=== PATIENT | female | born 1955 | race Caucasian/White ===

== ENCOUNTER 2018-03-19 21:11 | Inpatient (IN) | payer OTHER ==
[~2018-03-19] VITALS: Ht 162.6 cm; Wt 53.3 kg
[~2018-03-19 21:11] MED LIST: ENOX40SY4 SQ; FOLI-17 PO; IBUP-1221 PO; LEVE500T53 PO; LORA-445 PO; MAGN400T26 PO; OXYC5TAB3 PO; SODIUM TABLET PO; THIA100T6 PO
[2018-03-19 23:04] LABS: BASOPHILS # (AUTO) 0.03 x10^3/uL (0-0.1); BASOPHILS % (AUTO) 0 % (0-1); EOSINOPHILS # (AUTO) 0.03 x10^3/uL (0-0.4); EOSINOPHILS % (AUTO) 0 % (1-7); LYMPHOCYTES # (AUTO) 2.59 x10^3/uL (1-3.4); LYMPHOCYTES % (AUTO) 29 % (22-44); MD NO; MEAN CORPUSCULAR HEMOGLOBIN 32.2 pg (27.0-34.8); MEAN CORPUSCULAR HGB CONC 34.1 g/dL (32.4-35.8); MEAN CORPUSCULAR VOLUME 94.3 fL (80-100); MONOCYTES % (AUTO) 11 % (2-9); NEUTROPHILS # (AUTO) 5.19 x10^3/uL (1.8-6.8); NEUTROPHILS % (AUTO) 59 % (42-75); PLATELET COUNT 273 x10^3/uL (130-400); RED BLOOD COUNT 5.47 x10^6/uL (3.82-5.3); RED CELL DISTRIBUTION WIDTH 13.5 % (9.6-15.2)
[2018-03-19 23:14] LABS: ALBUMIN 3.2 g/dL (3.4-5.0); ANION GAP 10 mmol/L (5-15); CALCIUM 8.7 mg/dL (8.5-10.1); CHLORIDE 91 mmol/L (98-107); CREATININE 0.43 mg/dL (0.55-1.02)
[2018-03-19] MEDS ORDERED: SODIUM CHLORIDE 0.9% 1,000ML IVBOLUS ONE (23:30)
[2018-03-19] MEDS ORDERED: SODIUM CHLORIDE FLUSH 10ML SYR IVF ONE (23:30)
[2018-03-20] MEDS ORDERED: NICOTINE 14MG/24 HR PATCH.TD24 TD SCH (01:30)
[2018-03-20] MEDS ORDERED: PROMETHAZINE 25 MG/ML, 1ML IM PRN (01:30)
[2018-03-20] MEDS ORDERED: LORazepam 0.5MG TABLET PO PRN (01:30)
[2018-03-20] MEDS: HEPARIN 5,000 UNITS/ML, 1ML SQ SCH ×2 (01:30→08:41)
[2018-03-20] MEDS ORDERED: BISACODYL 10 MG SUPP PR PRN (01:30)
[2018-03-20] MEDS ORDERED: hydrALAzine 20 MG/ML, 1ML IVPush PRN (01:30)
[2018-03-20] MEDS ORDERED: morphine SULFATE 10 MG/ML, 1ML IVPush PRN (01:30)
[2018-03-20] MEDS ORDERED: OXYcodone IR 5MG TABLET PO PRN (01:30)
[2018-03-20] MEDS ORDERED: ONDANSETRON 2MG/ML, 2ML IVPush PRN (01:30)
[2018-03-20] MEDS ORDERED: LORazepam 1MG TABLET PO PRN ×4 (01:30)
[2018-03-20] MEDS ORDERED: LORazepam 2 MG/ML, 1ML IV PRN ×5 (01:30)
[2018-03-20] MEDS ORDERED: ONDANSETRON ODT 4 MG PO PRN (01:30)
[2018-03-20] MEDS ORDERED: DOCUSATE 100 MG CAPSULE PO PRN (01:30)
[2018-03-20] MEDS ORDERED: POLYETHYLENE GLYCOL 17 GM PACKET PO PRN (01:30)
[2018-03-20 01:45] VITALS: BP 141/95
[2018-03-20] MEDS: SODIUM CHLORIDE 0.9% 1,000 ML IV SCH ×2 (02:01→08:43)
[2018-03-20 02:02] LABS: FREE T4 (FREE THYROXINE) 1.22 ng/dL (0.76-1.46); THYROID STIMULATING HORMONE 2.81 mIU/L (0.358-3.740)
[2018-03-20 02:20] LABS: HEMOGLOBIN A1C 5.8 % (4.2-6.3)
[2018-03-20 02:36] VITALS: BP 141/95
[2018-03-20] MEDS: THIAMINE 100MG TABLET PO SCH ×2 (08:41→08:51)
[2018-03-20 08:43] VITALS: BP 133/96
[2018-03-20] MEDS ORDERED: MAGNESIUM OXIDE 400 MG TABLET PO SCH (09:00)
[2018-03-20] MEDS ORDERED: FAMOTIDINE 20 MG/2 ML IVPush SCH (09:00)
[2018-03-20] MEDS ORDERED: FOLIC ACID 1 MG TABLET PO SCH (09:00)
[2018-03-20] MEDS ORDERED: BEER 12 OZ CAN PO SCH (11:30)
[2018-03-20 13:45] VITALS: BP 167/110
== END 2018-03-20 16:12 | disposition left against medical advice (07) | DRG 204 ==
LOC: ED 21:54 → EDIP 23:25 → 3NW 03-20 00:35 → 3NE 03-20 01:09
PROVIDERS: ADMIT Internal Medicine; ATTEND Internal Medicine
DX: R06.03 Acute respiratory distress (principal); E44.0 Moderate protein-calorie malnutrition; E87.1 Hypo-osmolality and hyponatremia; W01.0XXA Fall on same level from slipping, tripping and stumbling without subsequent striking against object, initial encounter; G89.11 Acute pain due to trauma; I10 Essential (primary) hypertension; E86.0 Dehydration; F10.20 Alcohol dependence, uncomplicated; F41.9 Anxiety disorder, unspecified; M19.90 Unspecified osteoarthritis, unspecified site; R62.7 Adult failure to thrive; S63.502A Unspecified sprain of left wrist, initial encounter; S83.92XA Sprain of unspecified site of left knee, initial encounter; Z91.14 Patient's other noncompliance with medication regimen; Z91.81 History of falling; Z96.642 Presence of left artificial hip joint; Z68.20 Body mass index [BMI] 20.0-20.9, adult; Z53.21 Procedure and treatment not carried out due to patient leaving prior to being seen by health care provider; Y93.89 Activity, other specified; Y92.89 Other specified places as the place of occurrence of the external cause; Y99.8 Other external cause status
CPT/HCPCS: 36415; 72190; 80048; 82040; 83036; 83735; 84100; 84439; 84443; 85025; 93005; 96360; J1644; J7030; S0028

== ENCOUNTER 2018-04-10 11:51 | Emergency (ER) | payer SELFPAY ==
[~2018-04-10] VITALS: Ht 160 cm; Wt 50.0 kg
[2018-04-10] MEDS ORDERED: SODIUM CHLORIDE FLUSH 10ML SYR IVF ONE (13:30)
[2018-04-10 13:40] LABS: BASOPHILS # (AUTO) 0.06 x10^3/uL (0-0.1); BASOPHILS % (AUTO) 1 % (0-1); EOSINOPHILS # (AUTO) 0.02 x10^3/uL (0-0.4); EOSINOPHILS % (AUTO) 0 % (1-7); LYMPHOCYTES % (AUTO) 29 % (22-44); MD NO; MEAN CORPUSCULAR HEMOGLOBIN 31.4 pg (27.0-34.8); MEAN CORPUSCULAR HGB CONC 33.3 g/dL (32.4-35.8); MEAN CORPUSCULAR VOLUME 94.2 fL (80-100); MONOCYTES # (AUTO) 0.56 x10^3/uL (0.2-0.8); MONOCYTES % (AUTO) 8 % (2-9); NEUTROPHILS # (AUTO) 4.16 x10^3/uL (1.8-6.8); NEUTROPHILS % (AUTO) 61 % (42-75); PLATELET COUNT 315 x10^3/uL (130-400); RED BLOOD COUNT 5.26 x10^6/uL (3.82-5.3)
[2018-04-10] MEDS ORDERED: SODIUM CHLORIDE 0.9% 1,000 ML IV ONE (13:47)
[2018-04-10 13:48] LABS: ALBUMIN 2.7 g/dL (3.4-5.0); ANION GAP 10 mmol/L (5-15); CALCIUM 7.8 mg/dL (8.5-10.1); CHLORIDE 97 mmol/L (98-107)
[2018-04-10 13:51] LABS: ALANINE AMINOTRANSFERASE 37 U/L (12-78); ALKALINE PHOSPHATASE 208 U/L (45-117); BILIRUBIN,TOTAL 0.8 mg/dL (0.2-1.0); CREATININE 0.47 mg/dL (0.55-1.02); TOTAL PROTEIN 7.1 g/dL (6.4-8.2)
[2018-04-10] MEDS ORDERED: SODIUM CHLORIDE 0.9% 1,000ML IVBOLUS ONE (14:00)
[2018-04-10] MEDS ORDERED: OMNIPAQUE 350 MG/ML, 100ML BOTTLE ONE (14:53)
[2018-04-10 15:59] LABS: MICROSCOPIC AUTO
[2018-04-10 16:01] LABS: CULTURE INDICATED? YES
[2018-04-10 16:27] LABS: CLOSTRIDIUM DIFFICILE ANTIGEN NEGATIVE; CLOSTRIDIUM DIFFICILE TOXIN NEGATIVE (Negative)
[2018-04-10 17:36] VITALS: BP 130/99
== END 2018-04-10 18:40 | disposition home or self-care (01) ==
LOC: ED 12:13
DX: R10.84 Generalized abdominal pain (principal); N39.0 Urinary tract infection, site not specified; F17.200 Nicotine dependence, unspecified, uncomplicated
CPT/HCPCS: 36415; 74177; 80053; 81001; 83605; 83690; 85025; 87077; 87086; 87186; 87324; 89055; 96360; 96361; 99285; J7030; Q9967

== ENCOUNTER 2018-04-12 07:36 | Inpatient (IN) | payer SELFPAY ==
[~2018-04-12] VITALS: Ht 160 cm; Wt 56.3 kg
[2018-04-12] MEDS ORDERED: SODIUM CHLORIDE 0.9% 1,000ML IVBOLUS ONE (08:00)
[2018-04-12] MEDS ORDERED: SODIUM CHLORIDE FLUSH 10ML SYR IVF ONE (08:00)
[2018-04-12 08:07] LABS: INTERNATIONAL NORMALIZED RATIO 1.29 (0.93-1.1); PROTHROMBIN TIME 13.2 Seconds (9.6-11.5)
[2018-04-12 08:13] LABS: ALANINE AMINOTRANSFERASE 37 U/L (12-78); ALBUMIN 2.9 g/dL (3.4-5.0); ANION GAP 15 mmol/L (5-15); CALCIUM 8.5 mg/dL (8.5-10.1); CHLORIDE 86 mmol/L (98-107); CREATININE 0.44 mg/dL (0.55-1.02)
[2018-04-12 08:15] LABS: ALKALINE PHOSPHATASE 219 U/L (45-117); BILIRUBIN,TOTAL 1.1 mg/dL (0.2-1.0); TOTAL PROTEIN 7.4 g/dL (6.4-8.2)
[2018-04-12 08:19] LABS: BASOPHILS # (AUTO) 0.02 x10^3/uL (0-0.1); BASOPHILS % (AUTO) 0 % (0-1); EOSINOPHILS # (AUTO) 0.01 x10^3/uL (0-0.4); EOSINOPHILS % (AUTO) 0 % (1-7); LYMPHOCYTES # (AUTO) 1.12 x10^3/uL (1-3.4); LYMPHOCYTES % (AUTO) 13 % (22-44); MD NO; MEAN CORPUSCULAR HEMOGLOBIN 31.5 pg (27.0-34.8); MEAN CORPUSCULAR HGB CONC 33.9 g/dL (32.4-35.8); MEAN CORPUSCULAR VOLUME 92.7 fL (80-100); MEAN PLATELET VOLUME 8.1 fL (7.4-10.4); MONOCYTES # (AUTO) 0.51 x10^3/uL (0.2-0.8); MONOCYTES % (AUTO) 6 % (2-9); NEUTROPHILS # (AUTO) 7.14 x10^3/uL (1.8-6.8); NEUTROPHILS % (AUTO) 81 % (42-75); PLATELET COUNT 318 x10^3/uL (130-400); RED BLOOD COUNT 5.55 x10^6/uL (3.82-5.3); RED CELL DISTRIBUTION WIDTH 13.4 % (9.6-15.2)
[2018-04-12 09:12] LABS: MICROSCOPIC AUTO
[2018-04-12 09:14] LABS: CULTURE INDICATED? YES
[2018-04-12] MEDS ORDERED: FENTANYL PF 100 MCG/2ML IVPush PRN (09:30)
[2018-04-12 09:46] LABS: TROPONIN I 0.032 ng/mL (0.000-0.045)
[2018-04-12] MEDS ORDERED: FENTANYL PF 100 MCG/2ML ONE (09:54)
[2018-04-12] MEDS ORDERED: LORazepam 0.5MG TABLET PO PRN (12:00)
[2018-04-12] MEDS ORDERED: LORazepam 1MG TABLET PO PRN (12:00)
[2018-04-12] MEDS ORDERED: ONDANSETRON ODT 4 MG PO PRN (12:00)
[2018-04-12] MEDS ORDERED: hydrALAzine 20 MG/ML, 1ML IVPush PRN (12:00)
[2018-04-12] MEDS ORDERED: LORazepam 2 MG/ML, 1ML IV PRN ×4 (12:00)
[2018-04-12] MEDS ORDERED: POLYETHYLENE GLYCOL 17 GM PACKET PO PRN (12:00)
[2018-04-12] MEDS ORDERED: MORPHINE SULFATE 4 MG/ML, 1ML IVPush PRN (12:00)
[2018-04-12] MEDS ORDERED: LABETALOL 5MG/ML, 20ML IVPush PRN (12:00)
[2018-04-12] MEDS ORDERED: DOCUSATE 100 MG CAPSULE PO PRN (12:00)
[2018-04-12] MEDS ORDERED: PROMETHAZINE 25 MG/ML, 1ML IM PRN (12:00)
[2018-04-12] MEDS ORDERED: ONDANSETRON 2MG/ML, 2ML IVPush PRN (12:00)
[2018-04-12] MEDS ORDERED: OXYcodone IR 5MG TABLET PO PRN (12:00)
[2018-04-12 12:43] LABS: FREE T4 (FREE THYROXINE) 1.12 ng/dL (0.76-1.46); THYROID STIMULATING HORMONE 2.41 mIU/L (0.358-3.740)
[2018-04-12 12:52] VITALS: BP 138/70
[2018-04-12 12:58] LABS: HEMOGLOBIN A1C 5.9 % (4.2-6.3)
[2018-04-12] MEDS ORDERED: ASPIRIN 81 MG TABLET EC PO SCH (13:00)
[2018-04-12] MEDS ORDERED: ENOXAPARIN 40 MG/0.4 ML SQ SCH (13:00)
[2018-04-12] MEDS ORDERED: LOSARTAN 25MG TABLET PO SCH (13:00)
[2018-04-12] MEDS: LORazepam 1MG TABLET PO PRN (15:04)
[2018-04-12] MEDS: POTASSIUM CHLORIDE 20 MEQ, MAGNESIUM SULFATE 2 GM, THIAMINE 100 MG, MVI ADULT 10 ML, FO... IV SCH ×2 (15:05→23:16)
[2018-04-12] MEDS: LOSARTAN 25MG TABLET PO SCH (15:30)
[2018-04-12] MEDS: CEFTRIAXONE PMX 1GM/50ML 50 ML IV SCH (17:19)
[2018-04-12 18:35] VITALS: BP 139/74
[2018-04-13] MEDS: LOSARTAN 25MG TABLET PO SCH ×2 (00:06→09:56)
[2018-04-13 00:53] VITALS: BP 136/63
[2018-04-13 05:32] LABS: CHLORIDE 99 mmol/L (98-107)
[2018-04-13 05:34] LABS: BASOPHILS # (AUTO) 0.02 x10^3/uL (0-0.1); BASOPHILS % (AUTO) 0 % (0-1); EOSINOPHILS # (AUTO) 0.03 x10^3/uL (0-0.4); EOSINOPHILS % (AUTO) 1 % (1-7); LYMPHOCYTES # (AUTO) 1.71 x10^3/uL (1-3.4); LYMPHOCYTES % (AUTO) 26 % (22-44); MD NO; MEAN CORPUSCULAR HEMOGLOBIN 31.8 pg (27.0-34.8); MEAN CORPUSCULAR HGB CONC 33.8 g/dL (32.4-35.8); MEAN PLATELET VOLUME 7.7 fL (7.4-10.4); MONOCYTES # (AUTO) 0.72 x10^3/uL (0.2-0.8); MONOCYTES % (AUTO) 11 % (2-9); NEUTROPHILS # (AUTO) 4.06 x10^3/uL (1.8-6.8); NEUTROPHILS % (AUTO) 62 % (42-75); PLATELET COUNT 273 x10^3/uL (130-400); RED BLOOD COUNT 4.57 x10^6/uL (3.82-5.3); RED CELL DISTRIBUTION WIDTH 13.9 % (9.6-15.2)
[2018-04-13 05:45] LABS: ALANINE AMINOTRANSFERASE 23 U/L (12-78); ALBUMIN 2.1 g/dL (3.4-5.0); ALKALINE PHOSPHATASE 152 U/L (45-117); ANION GAP 7 mmol/L (5-15); CALCIUM 7.7 mg/dL (8.5-10.1); CHOL/HDL RATIO 1.7; CHOLESTEROL, TOTAL 99 mg/dL (140-239); HDL CHOL % 61 % (28-40); HDL CHOLESTEROL (DIRECT) 60 mg/dL (40-60); LDL CHOLESTEROL,CALCULATED 24 mg/dL (54-169); LDL/HDL RATIO 0.4 (0.5-3.0); TOTAL PROTEIN 5.7 g/dL (6.4-8.2); TRIGLYCERIDES 77 mg/dL (50-200); VLDL CHOLESTEROL 15 mg/dL (0-25)
[2018-04-13 07:44] VITALS: BP 120/51
[2018-04-13] MEDS ORDERED: ACETAMINOPHEN 325 MG TABLET PO PRN (09:00)
[2018-04-13] MEDS ORDERED: POTASSIUM CHLORIDE 20 MEQ TAB.ER.PRT PO ONE (09:00)
[2018-04-13] MEDS ORDERED: FENTANYL PF 100 MCG/2ML IVPush PRN (09:00)
[2018-04-13] MEDS ORDERED: SODIUM CHLORIDE 0.9% 1,000 ML IV SCH (09:00)
[2018-04-13] MEDS: LACTOBACILLUS CHEW TABLET PO SCH ×2 (09:55→17:48)
[2018-04-13] MEDS: LORazepam 1MG TABLET PO PRN (09:56)
[2018-04-13] MEDS ORDERED: OXYcodone IR 5MG TABLET PO PRN (12:00)
[2018-04-13] MEDS ORDERED: ACID1TAB7 PO (13:23)
[2018-04-13] MEDS ORDERED: CIPR500T8 PO (13:23)
[2018-04-13 13:36] VITALS: BP 169/78
[2018-04-13] MEDS: CEFTRIAXONE PMX 1GM/50ML 50 ML IV SCH ×2 (17:00→17:48)
[2018-04-13 18:38] VITALS: BP 176/97
== END 2018-04-13 19:40 | disposition home or self-care (01) | DRG 689 ==
LOC: ED 08:46 → EDIP 10:59 → 4NOR 12:05
PROVIDERS: ADMIT Hospitalist; ATTEND Hospitalist
DX: N39.0 Urinary tract infection, site not specified (principal); E43 Unspecified severe protein-calorie malnutrition; E87.1 Hypo-osmolality and hyponatremia; F10.239 Alcohol dependence with withdrawal, unspecified; E86.0 Dehydration; E87.6 Hypokalemia; F17.210 Nicotine dependence, cigarettes, uncomplicated; K70.9 Alcoholic liver disease, unspecified; F41.9 Anxiety disorder, unspecified; G89.29 Other chronic pain; I10 Essential (primary) hypertension; Z96.642 Presence of left artificial hip joint; Z88.0 Allergy status to penicillin; Z91.14 Patient's other noncompliance with medication regimen; Z68.22 Body mass index [BMI] 22.0-22.9, adult
CPT/HCPCS: 36415; 74021; 80053; 80061; 81001; 83036; 83605; 83690; 83735; 84439; 84443; 84484; 85025; 85610; 87077; 87086; 87186; 93005; 96374; J0696; J1650; J3010; J3411; J3475; J3480; J7042; J7030

== ENCOUNTER 2018-06-18 14:09 | Inpatient (IN) | payer SELFPAY ==
[~2018-06-18] VITALS: Ht 157.5 cm; Wt 49.6 kg
[~2018-06-18 14:09] MED LIST changes: +ACID1TAB7 PO; +CIPR500T8 PO; -THIA100T6 PO; +THIA100T67 PO
[2018-06-18 14:44] LABS: BASOPHILS # (AUTO) 0.07 x10^3/uL (0-0.1); BASOPHILS % (AUTO) 1 % (0-1); EOSINOPHILS # (AUTO) 0.04 x10^3/uL (0-0.4); EOSINOPHILS % (AUTO) 0 % (1-7); LYMPHOCYTES # (AUTO) 3.31 x10^3/uL (1-3.4); LYMPHOCYTES % (AUTO) 29 % (22-44); MD NO; MEAN CORPUSCULAR HEMOGLOBIN 31.1 pg (27.0-34.8); MEAN CORPUSCULAR HGB CONC 33.7 g/dL (32.4-35.8); MEAN CORPUSCULAR VOLUME 92.2 fL (80-100); MEAN PLATELET VOLUME 7.7 fL (7.4-10.4); MONOCYTES # (AUTO) 1.28 x10^3/uL (0.2-0.8); MONOCYTES % (AUTO) 11 % (2-9); NEUTROPHILS # (AUTO) 6.68 x10^3/uL (1.8-6.8); NEUTROPHILS % (AUTO) 59 % (42-75); PLATELET COUNT 408 x10^3/uL (130-400); RED BLOOD COUNT 4.59 x10^6/uL (3.82-5.3); RED CELL DISTRIBUTION WIDTH 17.2 % (9.6-15.2)
[2018-06-18 14:56] LABS: INTERNATIONAL NORMALIZED RATIO 1.09 (0.93-1.1); PROTHROMBIN TIME 11.2 Seconds (9.6-11.5)
[2018-06-18 14:57] LABS: ALANINE AMINOTRANSFERASE 17 U/L (12-78); ALBUMIN 3.5 g/dL (3.4-5.0); ANION GAP 13 mmol/L (5-15); CALCIUM 8.5 mg/dL (8.5-10.1); CHLORIDE 87 mmol/L (98-107); CREATININE 0.37 mg/dL (0.55-1.02)
[2018-06-18] MEDS ORDERED: LORazepam 1MG TABLET PO ONE (15:00)
[2018-06-18] MEDS ORDERED: LORazepam 0.5MG TABLET ONE (15:02)
[2018-06-18 15:05] LABS: CULTURE INDICATED? YES; MICROSCOPIC INDICATED
[2018-06-18] MEDS ORDERED: HYDR-3307 PO (15:06)
[2018-06-18] MEDS ORDERED: GABA-827 PO (15:06)
[2018-06-18] MEDS ORDERED: FURO-93 PO (15:06)
[2018-06-18] MEDS ORDERED: METO200T47 PO (15:06)
[2018-06-18] MEDS ORDERED: TRAZ-137 PO (15:06)
[2018-06-18] MEDS ORDERED: FAMO10TA31 PO (15:06)
[2018-06-18] MEDS ORDERED: LISI-167 PO (15:06)
[2018-06-18 15:07] LABS: ALKALINE PHOSPHATASE 162 U/L (45-117); BILIRUBIN,TOTAL 1.1 mg/dL (0.2-1.0); TOTAL PROTEIN 7.6 g/dL (6.4-8.2)
[2018-06-18 16:53] VITALS: BP 166/93
[2018-06-18] MEDS ORDERED: SODIUM CHLORIDE 0.9% 1,000 ML IV ONE (17:00)
[2018-06-18] MEDS ORDERED: SODIUM CHLORIDE 0.9% 1,000 ML IV SCH (17:09)
[2018-06-18] MEDS: ENOXAPARIN 40 MG/0.4 ML SQ SCH (17:28)
[2018-06-18] MEDS ORDERED: ONDANSETRON 2MG/ML, 2ML IVPush PRN (17:30)
[2018-06-18] MEDS ORDERED: LORazepam 1MG TABLET PO PRN ×4 (17:30)
[2018-06-18] MEDS ORDERED: hydrALAzine 20 MG/ML, 1ML IVPush PRN (17:30)
[2018-06-18] MEDS ORDERED: ACETAMINOPHEN 325 MG TABLET PO PRN (17:30)
[2018-06-18] MEDS ORDERED: BUTALB/APAP/CAFFEINE 50MG/325MG/40MG PO PRN (17:30)
[2018-06-18] MEDS ORDERED: GUAIFENESIN/COD200MG-20MG/10ML LIQUID PO PRN (17:30)
[2018-06-18] MEDS: NICOTINE 7 MG/24 HR PATCH.TD24 TD SCH (17:30)
[2018-06-18] MEDS ORDERED: MAGNESIUM SULFATE PMX 2GM/50ML 50 ML IV ONE (18:00)
[2018-06-18 18:24] VITALS: BP 106/61
[2018-06-18] MEDS ORDERED: METO-95 PO (18:31)
[2018-06-18] MEDS ORDERED: Famotidine PO (18:31)
[2018-06-18] MEDS ORDERED: GABA-826 PO (18:31)
[2018-06-18] MEDS ORDERED: Lisinopril (18:31)
[2018-06-18] MEDS ORDERED: TRAZ5POW PO (18:31)
[2018-06-18] MEDS ORDERED: HYDR-3245 PO (18:33)
[2018-06-18] MEDS: HYDROcodone/APAP 10/325 MG TABLET PO SCH (18:51)
[2018-06-18] MEDS: TRAZODONE 50MG TABLET PO SCH (20:07)
[2018-06-18] MEDS: GABAPENTIN 100 MG CAPSULE PO SCH (20:07)
[2018-06-18] MEDS ORDERED: TRAZODONE 100MG TABLET PO SCH (21:00)
[2018-06-18] MEDS ORDERED: SODIUM CHLORIDE 1 GM TABLET PO SCH (21:00)
[2018-06-18] MEDS ORDERED: GABAPENTIN 400 MG CAPSULE PO SCH (21:00)
[2018-06-18 21:15] LABS: OSMOLALITY,URINE 140 mOsm/kg (500-850)
[2018-06-18 23:14] LABS: ANION GAP 6 mmol/L (5-15); CALCIUM 8.1 mg/dL (8.5-10.1); CHLORIDE 97 mmol/L (98-107); CREATININE 0.47 mg/dL (0.55-1.02)
[2018-06-19] MEDS: HYDROcodone/APAP 10/325 MG TABLET PO SCH ×4 (00:33→19:19)
[2018-06-19 01:19] VITALS: BP 139/67
[2018-06-19] MEDS ORDERED: SODIUM CHLORIDE 0.9% 1,000 ML IV ONE (02:30)
[2018-06-19] MEDS ORDERED: HYDROcodone/APAP 10/325 MG TABLET PO SCH ×2 (03:00→09:00)
[2018-06-19 04:52] LABS: BASOPHILS # (AUTO) 0.01 x10^3/uL (0-0.1); BASOPHILS % (AUTO) 0 % (0-1); EOSINOPHILS # (AUTO) 0.05 x10^3/uL (0-0.4); EOSINOPHILS % (AUTO) 1 % (1-7); LYMPHOCYTES % (AUTO) 41 % (22-44); MD NO; MEAN CORPUSCULAR HEMOGLOBIN 31.7 pg (27.0-34.8); MEAN CORPUSCULAR HGB CONC 33.8 g/dL (32.4-35.8); MEAN CORPUSCULAR VOLUME 93.7 fL (80-100); MONOCYTES # (AUTO) 0.94 x10^3/uL (0.2-0.8); MONOCYTES % (AUTO) 15 % (2-9); NEUTROPHILS # (AUTO) 2.81 x10^3/uL (1.8-6.8); NEUTROPHILS % (AUTO) 44 % (42-75); PLATELET COUNT 369 x10^3/uL (130-400); RED BLOOD COUNT 3.79 x10^6/uL (3.82-5.3); RED CELL DISTRIBUTION WIDTH 17.7 % (9.6-15.2)
[2018-06-19 04:59] LABS: ANION GAP 7 mmol/L (5-15); CALCIUM 7.7 mg/dL (8.5-10.1); CHLORIDE 102 mmol/L (98-107); CREATININE 0.27 mg/dL (0.55-1.02)
[2018-06-19] MEDS ORDERED: METOPROLOL SUCCINATE 100 MG TAB.ER.24H PO SCH ×2 (06:00→09:00)
[2018-06-19 06:56] VITALS: BP 106/64
[2018-06-19] MEDS ORDERED: LISINOPRIL 10 MG TABLET PO SCH (09:00)
[2018-06-19] MEDS ORDERED: FAMOTIDINE 20 MG TABLET PO SCH (09:00)
[2018-06-19] MEDS: MULTIVITAMINS/MINERALS TABLET PO SCH (10:24)
[2018-06-19] MEDS: FAMOTIDINE 20 MG TABLET PO SCH (10:24)
[2018-06-19] MEDS: GABAPENTIN 100 MG CAPSULE PO SCH ×3 (10:25→20:29)
[2018-06-19] MEDS: LISINOPRIL 5 MG TABLET PO SCH (10:25)
[2018-06-19] MEDS: SODIUM CHLORIDE 1 GM TABLET PO SCH ×2 (10:27→20:29)
[2018-06-19 12:03] VITALS: BP 193/81
[2018-06-19 12:34] VITALS: BP 145/79
[2018-06-19] MEDS: DOCUSATE 100 MG CAPSULE PO PRN (14:14)
[2018-06-19] MEDS: LORazepam 0.5MG TABLET PO PRN (14:54)
[2018-06-19] MEDS: ENOXAPARIN 40 MG/0.4 ML SQ SCH (16:35)
[2018-06-19] MEDS: NICOTINE 7 MG/24 HR PATCH.TD24 TD SCH (16:40)
[2018-06-19] MEDS ORDERED: SODIUM CHLORIDE 0.9% 1,000 ML IV SCH (17:09)
[2018-06-19 19:18] VITALS: BP 138/72
[2018-06-19] MEDS: TRAZODONE 50MG TABLET PO SCH (20:29)
[2018-06-19] MEDS: METOPROLOL TARTRATE 50 MG TABLET PO SCH (20:30)
[2018-06-20] VITALS (7 sets, daily range): BP systolic 118–158; BP diastolic 66–81
[2018-06-20] MEDS: HYDROcodone/APAP 10/325 MG TABLET PO SCH ×4 (01:17→20:24)
[2018-06-20] MEDS: LORazepam 0.5MG TABLET PO PRN ×2 (05:05→17:00)
[2018-06-20] MEDS: DOCUSATE 100 MG CAPSULE PO PRN (09:32)
[2018-06-20] MEDS: LISINOPRIL 5 MG TABLET PO SCH (09:32)
[2018-06-20] MEDS: SODIUM CHLORIDE 1 GM TABLET PO SCH ×2 (09:32→20:24)
[2018-06-20] MEDS: MULTIVITAMINS/MINERALS TABLET PO SCH (09:32)
[2018-06-20] MEDS: FAMOTIDINE 20 MG TABLET PO SCH (09:33)
[2018-06-20] MEDS: GABAPENTIN 100 MG CAPSULE PO SCH ×3 (09:33→21:00)
[2018-06-20] MEDS: METOPROLOL TARTRATE 50 MG TABLET PO SCH ×2 (09:33→20:24)
[2018-06-20 10:09] LABS: ANION GAP 10 mmol/L (5-15); CALCIUM 8.2 mg/dL (8.5-10.1); CHLORIDE 103 mmol/L (98-107); CREATININE 0.49 mg/dL (0.55-1.02)
[2018-06-20] MEDS ORDERED: SODI1TAB PO (11:16)
[2018-06-20] MEDS ORDERED: GABA-826 PO (11:16)
[2018-06-20] MEDS ORDERED: LISI5TAB7 PO (11:16)
[2018-06-20] MEDS ORDERED: SULF-169 PO (11:16)
[2018-06-20] MEDS ORDERED: FAMO20TA7 PO (11:16)
[2018-06-20] MEDS: SULFAMETH./TRIMETHOPRIM DS 800MG/160MG TABLET PO SCH ×2 (11:24→20:24)
[2018-06-20 13:27] LABS: TROPONIN I < 0.015 ng/mL (0.000-0.045)
[2018-06-20] MEDS: ENOXAPARIN 40 MG/0.4 ML SQ SCH (17:00)
[2018-06-20] MEDS: NICOTINE 7 MG/24 HR PATCH.TD24 TD SCH (17:01)
[2018-06-20 19:25] LABS: TROPONIN I < 0.015 ng/mL (0.000-0.045)
[2018-06-20] MEDS: TRAZODONE 50MG TABLET PO SCH (20:24)
[2018-06-21 00:57] LABS: TROPONIN I < 0.015 ng/mL (0.000-0.045)
[2018-06-21 01:01] VITALS: BP 111/63
[2018-06-21] MEDS: HYDROcodone/APAP 10/325 MG TABLET PO SCH ×2 (01:40→07:40)
[2018-06-21 05:51] LABS: MEAN CORPUSCULAR HEMOGLOBIN 31.2 pg (27.0-34.8); MEAN CORPUSCULAR HGB CONC 33.1 g/dL (32.4-35.8); MEAN CORPUSCULAR VOLUME 94.4 fL (80-100); MEAN PLATELET VOLUME 7.9 fL (7.4-10.4); PLATELET COUNT 331 x10^3/uL (130-400); RED BLOOD COUNT 3.82 x10^6/uL (3.82-5.3); RED CELL DISTRIBUTION WIDTH 18.3 % (9.6-15.2)
[2018-06-21 06:00] LABS: ANION GAP 6 mmol/L (5-15); CALCIUM 8.2 mg/dL (8.5-10.1); CHLORIDE 103 mmol/L (98-107)
[2018-06-21 06:09] LABS: BASOPHILS # (AUTO) 0.08 x10^3/uL (0-0.1); BASOPHILS % (AUTO) 1 % (0-1); EOSINOPHILS # (AUTO) 0.23 x10^3/uL (0-0.4); EOSINOPHILS % (AUTO) 3 % (1-7); LYMPHOCYTES # (AUTO) 3.81 x10^3/uL (1-3.4); LYMPHOCYTES % (AUTO) 45 % (22-44); MD SCAN; MONOCYTES # (AUTO) 1.21 x10^3/uL (0.2-0.8); MONOCYTES % (AUTO) 14 % (2-9); NEUTROPHILS # (AUTO) 3.22 x10^3/uL (1.8-6.8); NEUTROPHILS % (AUTO) 38 % (42-75)
[2018-06-21 06:40] VITALS: BP 169/83
[2018-06-21] MEDS: SULFAMETH./TRIMETHOPRIM DS 800MG/160MG TABLET PO SCH (07:39)
[2018-06-21] MEDS: METOPROLOL TARTRATE 50 MG TABLET PO SCH (07:39)
[2018-06-21] MEDS: MULTIVITAMINS/MINERALS TABLET PO SCH (07:39)
[2018-06-21] MEDS: LISINOPRIL 5 MG TABLET PO SCH (07:40)
[2018-06-21] MEDS: SODIUM CHLORIDE 1 GM TABLET PO SCH (07:40)
[2018-06-21] MEDS: FAMOTIDINE 20 MG TABLET PO SCH (07:40)
[2018-06-21] MEDS: GABAPENTIN 100 MG CAPSULE PO SCH (07:40)
[2018-06-21] MEDS ORDERED: ONDANSETRON ODT 4 MG ONE (10:01)
[2018-06-21] MEDS ORDERED: SODI1TAB PO (10:42)
[2018-06-21] MEDS: LORazepam 0.5MG TABLET PO PRN (11:22)
== END 2018-06-21 12:08 | disposition home or self-care (01) | DRG 641 ==
LOC: ED 14:29 → EDIP 16:21 → 3NW 16:48 → 4EST 06-20 15:43 → DCLOUNGE 06-21 12:04
PROVIDERS: ADMIT Internal Medicine; ATTEND Internal Medicine
DX: E87.1 Hypo-osmolality and hyponatremia (principal); N39.0 Urinary tract infection, site not specified; E44.0 Moderate protein-calorie malnutrition; Z96.641 Presence of right artificial hip joint; I10 Essential (primary) hypertension; F17.200 Nicotine dependence, unspecified, uncomplicated; F41.9 Anxiety disorder, unspecified; E86.0 Dehydration; G89.29 Other chronic pain; F10.20 Alcohol dependence, uncomplicated; B96.1 Klebsiella pneumoniae [K. pneumoniae] as the cause of diseases classified elsewhere; B96.20 Unspecified Escherichia coli [E. coli] as the cause of diseases classified elsewhere; Z87.440 Personal history of urinary (tract) infections; Z91.14 Patient's other noncompliance with medication regimen; Z88.0 Allergy status to penicillin; Z68.20 Body mass index [BMI] 20.0-20.9, adult
CPT/HCPCS: 36415; 71045; 80048; 80053; 81001; 83690; 83735; 83935; 84100; 84443; 84484; 85025; 85610; 85730; 87077; 87086; 87186; 93005; 99285; J1650; J2405; J3475; J7030

== ENCOUNTER 2018-07-03 09:14 | Emergency (ER) | payer SELFPAY ==
[~2018-07-03] VITALS: Ht 162.6 cm; Wt 48.0 kg
[~2018-07-03 09:14] MED LIST changes: +FAMO10TA31 PO; +FAMO20TA7 PO; +FURO-93 PO; +Famotidine PO; +GABA-826 PO; +GABA-827 PO; +HYDR-3245 PO; +HYDR-3307 PO; +LISI-167 PO; +LISI5TAB7 PO; +Lisinopril; +METO-95 PO; +METO200T47 PO; +SODI1TAB PO; +SULF-169 PO; +TRAZ-137 PO; +TRAZ5POW PO
[2018-07-03] MEDS ORDERED: SODIUM CHLORIDE 0.9% 1,000 ML IV ONE (09:33)
[2018-07-03 09:57] LABS: MICROSCOPIC INDICATED
[2018-07-03 09:58] LABS: CULTURE INDICATED? YES
[2018-07-03] MEDS ORDERED: SODIUM CHLORIDE FLUSH 10ML SYR IVF ONE (10:00)
[2018-07-03] MEDS ORDERED: MORPHINE SULFATE 4 MG/ML, 1ML IVPush PRN (10:00)
[2018-07-03] MEDS ORDERED: LORazepam 2 MG/ML, 1ML IVPush STA (10:26)
[2018-07-03] MEDS ORDERED: LORazepam 2 MG/ML, 1ML ONE (10:38)
[2018-07-03 11:06] VITALS: BP 108/86
[2018-07-03] MEDS ORDERED: OMNIPAQUE 350 MG/ML, 100ML BOTTLE ONE (11:49)
[2018-07-03 12:05] LABS: BASOPHILS # (AUTO) 0.05 x10^3/uL (0-0.1); BASOPHILS % (AUTO) 1 % (0-1); EOSINOPHILS # (AUTO) 0.04 x10^3/uL (0-0.4); EOSINOPHILS % (AUTO) 0 % (1-7); LYMPHOCYTES # (AUTO) 2.99 x10^3/uL (1-3.4); LYMPHOCYTES % (AUTO) 31 % (22-44); MD NO; MEAN CORPUSCULAR HEMOGLOBIN 31.8 pg (27.0-34.8); MEAN CORPUSCULAR HGB CONC 33.9 g/dL (32.4-35.8); MEAN PLATELET VOLUME 7.5 fL (7.4-10.4); MONOCYTES # (AUTO) 0.87 x10^3/uL (0.2-0.8); MONOCYTES % (AUTO) 9 % (2-9); NEUTROPHILS # (AUTO) 5.69 x10^3/uL (1.8-6.8); NEUTROPHILS % (AUTO) 59 % (42-75); PLATELET COUNT 428 x10^3/uL (130-400); RED CELL DISTRIBUTION WIDTH 17.4 % (9.6-15.2)
[2018-07-03 12:16] LABS: ALANINE AMINOTRANSFERASE 12 U/L (12-78); ALBUMIN 2.8 g/dL (3.4-5.0); ANION GAP 12 mmol/L (5-15); CALCIUM 8.1 mg/dL (8.5-10.1); CHLORIDE 102 mmol/L (98-107); CREATININE 0.37 mg/dL (0.55-1.02)
[2018-07-03 12:19] LABS: ALKALINE PHOSPHATASE 109 U/L (45-117); BILIRUBIN,TOTAL 0.6 mg/dL (0.2-1.0); TOTAL PROTEIN 6.4 g/dL (6.4-8.2)
== END 2018-07-03 14:37 | disposition home or self-care (01) ==
LOC: ED 09:29
DX: K80.20 Calculus of gallbladder without cholecystitis without obstruction (principal); I10 Essential (primary) hypertension; F10.20 Alcohol dependence, uncomplicated; F17.200 Nicotine dependence, unspecified, uncomplicated; R19.7 Diarrhea, unspecified; R63.0 Anorexia; R30.0 Dysuria
CPT/HCPCS: 36415; 74177; 80053; 81001; 83690; 85025; 87077; 87086; 93005; 96374; 99285; J2060; Q9967; 87186

== ENCOUNTER 2018-07-07 09:40 | Inpatient (IN) | payer SELFPAY ==
[~2018-07-07] VITALS: Ht 162.6 cm; Wt 45.5 kg
[2018-07-07] MEDS ORDERED: MORPHINE SULFATE 4 MG/ML, 1ML IVPush PRN (10:00)
[2018-07-07] MEDS ORDERED: DIAZEPAM 5 MG TABLET ONE (10:05)
[2018-07-07] MEDS ORDERED: MORPHINE SULFATE 4 MG/ML, 1ML ONE (10:05)
[2018-07-07] MEDS ORDERED: DIAZEPAM 5 MG TABLET PO ONE (11:00)
[2018-07-07] MEDS ORDERED: SODIUM CHLORIDE FLUSH 10ML SYR IVF ONE (11:00)
[2018-07-07] MEDS ORDERED: SODIUM CHLORIDE 0.9% 1,000 ML IV ONE (11:00)
[2018-07-07 11:53] LABS: ALBUMIN 3.6 g/dL (3.4-5.0); ANION GAP 10 mmol/L (5-15); CHLORIDE 100 mmol/L (98-107); CREATININE 0.41 mg/dL (0.55-1.02)
[2018-07-07 12:28] LABS: BASOPHILS # (AUTO) 0.03 x10^3/uL (0-0.1); BASOPHILS % (AUTO) 1 % (0-1); EOSINOPHILS # (AUTO) 0.02 x10^3/uL (0-0.4); EOSINOPHILS % (AUTO) 0 % (1-7); LYMPHOCYTES # (AUTO) 2.35 x10^3/uL (1-3.4); LYMPHOCYTES % (AUTO) 47 % (22-44); MD SCAN; MEAN CORPUSCULAR HEMOGLOBIN 31.1 pg (27.0-34.8); MEAN CORPUSCULAR VOLUME 94.2 fL (80-100); MEAN PLATELET VOLUME 8.2 fL (7.4-10.4); MONOCYTES # (AUTO) 0.39 x10^3/uL (0.2-0.8); MONOCYTES % (AUTO) 8 % (2-9); NEUTROPHILS # (AUTO) 2.22 x10^3/uL (1.8-6.8); NEUTROPHILS % (AUTO) 44 % (42-75); PLATELET COUNT 425 x10^3/uL (130-400); RED BLOOD COUNT 4.98 x10^6/uL (3.82-5.3); RED CELL DISTRIBUTION WIDTH 17.4 % (9.6-15.2)
[2018-07-07] MEDS ORDERED: TRAZ-137 PO (12:54)
[2018-07-07] MEDS ORDERED: GABA100C PO (12:54)
[2018-07-07] MEDS ORDERED: NITR100C PO (12:54)
[2018-07-07] MEDS ORDERED: POTA10TA5 PO (12:54)
[2018-07-07] MEDS ORDERED: METO25TA35 PO (12:54)
[2018-07-07 13:48] VITALS: BP 196/99
[2018-07-07 13:52] VITALS: BP 196/99
[2018-07-07] MEDS ORDERED: POLYETHYLENE GLYCOL 17 GM PACKET PO PRN (14:00)
[2018-07-07] MEDS ORDERED: ONDANSETRON ODT 4 MG PO PRN (14:00)
[2018-07-07] MEDS ORDERED: BISACODYL 10 MG SUPP PR PRN (14:00)
[2018-07-07] MEDS ORDERED: LABETALOL 5MG/ML, 20ML IVPush PRN (14:00)
[2018-07-07] MEDS ORDERED: ONDANSETRON 2MG/ML, 2ML IVPush PRN (14:00)
[2018-07-07] MEDS ORDERED: hydrALAzine 20 MG/ML, 1ML IVPush PRN (14:00)
[2018-07-07] MEDS ORDERED: ACETAMINOPHEN 325 MG TABLET PO PRN (14:00)
[2018-07-07] MEDS ORDERED: morphine SULFATE 10 MG/ML, 1ML IVPush PRN (14:00)
[2018-07-07] MEDS: NICOTINE 7 MG/24 HR PATCH.TD24 TD SCH (14:00)
[2018-07-07] MEDS ORDERED: PROMETHAZINE 25 MG/ML, 1ML IM PRN (14:00)
[2018-07-07] MEDS ORDERED: IBUPROFEN 600 MG TABLET PO PRN (14:00)
[2018-07-07] MEDS: GABAPENTIN 300 MG CAPSULE PO SCH ×2 (14:24→21:00)
[2018-07-07] MEDS: METHOCARBAMOL 500 MG TABLET PO PRN ×2 (14:27→23:35)
[2018-07-07] MEDS: ENOXAPARIN 40 MG/0.4 ML SQ SCH (14:27)
[2018-07-07 14:32] LABS: CULTURE INDICATED? NO; MICROSCOPIC NOT IND
[2018-07-07 14:58] LABS: HEMOGLOBIN A1C 5.6 % (4.2-6.3)
[2018-07-07] MEDS: OXYcodone/APAP 5/325MG TABLET PO PRN ×2 (15:42→20:18)
[2018-07-07 16:28] LABS: FREE T4 (FREE THYROXINE) 1.45 ng/dL (0.76-1.46); THYROID STIMULATING HORMONE 3.35 mIU/L (0.358-3.740)
[2018-07-07 19:15] VITALS: BP 79/42
[2018-07-07 20:16] VITALS: BP 152/67
[2018-07-07] MEDS: METOPROLOL TARTRATE 25 MG TABLET PO SCH (21:32)
[2018-07-07] MEDS: TRAZODONE 100MG TABLET PO SCH (21:32)
[2018-07-07] MEDS: NITROFURANTOIN (MACROBID) 100 MG CAPSULE PO SCH (21:32)
[2018-07-07 21:33] VITALS: BP 123/62
[2018-07-08] MEDS: OXYcodone/APAP 5/325MG TABLET PO PRN ×7 (04:28→23:12)
[2018-07-08 04:31] VITALS: BP 168/72
[2018-07-08 05:47] LABS: CHLORIDE 103 mmol/L (98-107)
[2018-07-08 05:55] LABS: ALANINE AMINOTRANSFERASE 10 U/L (12-78); ALBUMIN 2.9 g/dL (3.4-5.0); ALKALINE PHOSPHATASE 109 U/L (45-117); ANION GAP 9 mmol/L (5-15); BILIRUBIN,TOTAL 0.4 mg/dL (0.2-1.0); CALCIUM 8.9 mg/dL (8.5-10.1); CHOL/HDL RATIO 2.5; CHOLESTEROL, TOTAL 142 mg/dL (140-239); CREATININE 0.36 mg/dL (0.55-1.02); HDL CHOL % 39 % (28-40); HDL CHOLESTEROL (DIRECT) 56 mg/dL (40-60); LDL CHOLESTEROL,CALCULATED 65 mg/dL (54-169); LDL/HDL RATIO 1.2 (0.5-3.0); TOTAL PROTEIN 6.4 g/dL (6.4-8.2); TRIGLYCERIDES 103 mg/dL (50-200); VLDL CHOLESTEROL 21 mg/dL (0-25)
[2018-07-08 05:56] LABS: BASOPHILS # (AUTO) 0.04 x10^3/uL (0-0.1); BASOPHILS % (AUTO) 1 % (0-1); EOSINOPHILS # (AUTO) 0.15 x10^3/uL (0-0.4); EOSINOPHILS % (AUTO) 2 % (1-7); LYMPHOCYTES # (AUTO) 3.43 x10^3/uL (1-3.4); LYMPHOCYTES % (AUTO) 48 % (22-44); MD NO; MEAN CORPUSCULAR HEMOGLOBIN 31.3 pg (27.0-34.8); MEAN CORPUSCULAR HGB CONC 33.1 g/dL (32.4-35.8); MEAN CORPUSCULAR VOLUME 94.5 fL (80-100); MEAN PLATELET VOLUME 8.2 fL (7.4-10.4); MONOCYTES # (AUTO) 1.03 x10^3/uL (0.2-0.8); MONOCYTES % (AUTO) 15 % (2-9); NEUTROPHILS # (AUTO) 2.44 x10^3/uL (1.8-6.8); NEUTROPHILS % (AUTO) 35 % (42-75); PLATELET COUNT 483 x10^3/uL (130-400); RED BLOOD COUNT 4.16 x10^6/uL (3.82-5.3); RED CELL DISTRIBUTION WIDTH 17.2 % (9.6-15.2)
[2018-07-08 07:09] VITALS: BP 138/77
[2018-07-08] MEDS: METHOCARBAMOL 500 MG TABLET PO PRN ×2 (07:36→21:07)
[2018-07-08] MEDS: METOPROLOL TARTRATE 25 MG TABLET PO SCH ×2 (08:30→21:07)
[2018-07-08] MEDS: FAMOTIDINE 20 MG TABLET PO SCH (08:30)
[2018-07-08] MEDS: NITROFURANTOIN (MACROBID) 100 MG CAPSULE PO SCH ×2 (08:30→21:07)
[2018-07-08] MEDS: SENNA/DOCUSATE TABLET PO SCH (08:31)
[2018-07-08] MEDS: GABAPENTIN 300 MG CAPSULE PO SCH ×3 (09:00→21:00)
[2018-07-08] MEDS: POTASSIUM CHLORIDE 40 MEQ in SODIUM CHLORIDE 0.9% 500 ML IV ONE ×2 (10:00→10:16)
[2018-07-08] MEDS ORDERED: ERGOCALCIFEROL 50,000 UNIT CAPSULE PO SCH (10:00)
[2018-07-08] MEDS ORDERED: LORazepam 2 MG/ML, 1ML IVPush ONE (12:00)
[2018-07-08] MEDS ORDERED: POTASSIUM CHLORIDE 10% 40 MEQ/30 ML UDC PO ONE ×2 (13:00→21:00)
[2018-07-08 13:53] VITALS: BP 124/89
[2018-07-08] MEDS: NICOTINE 7 MG/24 HR PATCH.TD24 TD SCH (14:00)
[2018-07-08] MEDS ORDERED: GADOBUTROL 7.5 MMOL/7.5 ML PFS ONE (15:22)
[2018-07-08] MEDS: ENOXAPARIN 40 MG/0.4 ML SQ SCH (15:45)
[2018-07-08 20:44] VITALS: BP 169/71
[2018-07-08] MEDS: TRAZODONE 100MG TABLET PO SCH (21:08)
[2018-07-09 02:45] VITALS: BP 156/89
[2018-07-09] MEDS: OXYcodone/APAP 5/325MG TABLET PO PRN ×5 (05:38→21:58)
[2018-07-09] MEDS: METHOCARBAMOL 500 MG TABLET PO PRN ×3 (05:50→21:58)
[2018-07-09 07:42] VITALS: BP 137/88
[2018-07-09] MEDS: GABAPENTIN 300 MG CAPSULE PO SCH ×3 (08:56→20:14)
[2018-07-09] MEDS: NITROFURANTOIN (MACROBID) 100 MG CAPSULE PO SCH ×2 (08:57→20:14)
[2018-07-09] MEDS: SENNA/DOCUSATE TABLET PO SCH (08:57)
[2018-07-09] MEDS: FAMOTIDINE 20 MG TABLET PO SCH (08:57)
[2018-07-09] MEDS: METOPROLOL TARTRATE 25 MG TABLET PO SCH ×2 (09:04→20:14)
[2018-07-09 12:50] VITALS: BP 127/88
[2018-07-09] MEDS: NICOTINE 7 MG/24 HR PATCH.TD24 TD SCH (14:00)
[2018-07-09] MEDS: ENOXAPARIN 40 MG/0.4 ML SQ SCH (14:10)
[2018-07-09 18:38] VITALS: BP 149/90
[2018-07-09] MEDS: TRAZODONE 100MG TABLET PO SCH (21:58)
[2018-07-10] MEDS: OXYcodone/APAP 5/325MG TABLET PO PRN ×6 (01:58→23:27)
[2018-07-10 02:11] VITALS: BP 115/74
[2018-07-10 04:24] LABS: BASOPHILS # (AUTO) 0.04 x10^3/uL (0-0.1); BASOPHILS % (AUTO) 1 % (0-1); EOSINOPHILS # (AUTO) 0.23 x10^3/uL (0-0.4); EOSINOPHILS % (AUTO) 3 % (1-7); LYMPHOCYTES # (AUTO) 3.55 x10^3/uL (1-3.4); LYMPHOCYTES % (AUTO) 51 % (22-44); MD NO; MEAN CORPUSCULAR HEMOGLOBIN 31.4 pg (27.0-34.8); MEAN CORPUSCULAR HGB CONC 33.1 g/dL (32.4-35.8); MEAN CORPUSCULAR VOLUME 94.8 fL (80-100); MONOCYTES # (AUTO) 0.84 x10^3/uL (0.2-0.8); MONOCYTES % (AUTO) 12 % (2-9); NEUTROPHILS % (AUTO) 33 % (42-75); PLATELET COUNT 452 x10^3/uL (130-400); RED BLOOD COUNT 4.09 x10^6/uL (3.82-5.3); RED CELL DISTRIBUTION WIDTH 17.7 % (9.6-15.2)
[2018-07-10 04:34] LABS: ANION GAP 6 mmol/L (5-15); CALCIUM 8.8 mg/dL (8.5-10.1); CHLORIDE 104 mmol/L (98-107)
[2018-07-10 04:37] LABS: CREATININE 0.42 mg/dL (0.55-1.02)
[2018-07-10] MEDS: METHOCARBAMOL 500 MG TABLET PO PRN ×3 (05:50→21:59)
[2018-07-10 07:45] VITALS: BP 168/84
[2018-07-10] MEDS: FAMOTIDINE 20 MG TABLET PO SCH (08:40)
[2018-07-10] MEDS: SENNA/DOCUSATE TABLET PO SCH (08:40)
[2018-07-10] MEDS: GABAPENTIN 300 MG CAPSULE PO SCH ×3 (08:40→21:44)
[2018-07-10] MEDS: METOPROLOL TARTRATE 25 MG TABLET PO SCH ×2 (08:41→21:41)
[2018-07-10] MEDS: LOSARTAN 25MG TABLET PO SCH (08:41)
[2018-07-10] MEDS: NITROFURANTOIN (MACROBID) 100 MG CAPSULE PO SCH ×2 (08:43→21:44)
[2018-07-10] MEDS ORDERED: LORazepam 1MG TABLET ONE (14:05)
[2018-07-10] MEDS: NICOTINE 7 MG/24 HR PATCH.TD24 TD SCH (14:07)
[2018-07-10] MEDS: LORazepam 1MG TABLET PO PRN ×2 (14:07→23:27)
[2018-07-10] MEDS: ENOXAPARIN 40 MG/0.4 ML SQ SCH (14:08)
[2018-07-10 15:18] VITALS: BP 135/84
[2018-07-10 19:30] VITALS: BP 100/69
[2018-07-10] MEDS: TRAZODONE 100MG TABLET PO SCH (21:44)
[2018-07-10 21:46] VITALS: BP 152/80
[2018-07-11 02:50] VITALS: BP 135/85
[2018-07-11] MEDS: OXYcodone/APAP 5/325MG TABLET PO PRN ×5 (04:21→23:33)
[2018-07-11] MEDS: METHOCARBAMOL 500 MG TABLET PO PRN ×3 (06:48→22:10)
[2018-07-11 06:54] VITALS: BP 123/71
[2018-07-11] MEDS: NITROFURANTOIN (MACROBID) 100 MG CAPSULE PO SCH ×2 (07:35→21:36)
[2018-07-11] MEDS: FAMOTIDINE 20 MG TABLET PO SCH (07:35)
[2018-07-11] MEDS: SENNA/DOCUSATE TABLET PO SCH (07:35)
[2018-07-11] MEDS: LORazepam 1MG TABLET PO PRN ×3 (07:36→23:33)
[2018-07-11] MEDS: LOSARTAN 25MG TABLET PO SCH ×2 (07:37→11:00)
[2018-07-11] MEDS: GABAPENTIN 300 MG CAPSULE PO SCH ×3 (07:37→21:36)
[2018-07-11] MEDS: METOPROLOL TARTRATE 25 MG TABLET PO SCH ×2 (07:37→21:36)
[2018-07-11 07:38] VITALS: BP_SYST 144; BP_SYST 98; BP_DIAS 61; BP_DIAS 81
[2018-07-11 10:55] VITALS: BP 134/81
[2018-07-11 12:15] VITALS: BP 149/80
[2018-07-11] MEDS: NICOTINE 7 MG/24 HR PATCH.TD24 TD SCH (14:00)
[2018-07-11] MEDS: ENOXAPARIN 40 MG/0.4 ML SQ SCH (14:00)
[2018-07-11 19:49] VITALS: BP 108/72
[2018-07-11] MEDS: TRAZODONE 100MG TABLET PO SCH (21:36)
[2018-07-12 02:15] VITALS: BP 147/75
[2018-07-12] MEDS: OXYcodone/APAP 5/325MG TABLET PO PRN ×3 (04:28→12:33)
[2018-07-12] MEDS: METHOCARBAMOL 500 MG TABLET PO PRN ×2 (06:39→14:25)
[2018-07-12 07:12] VITALS: BP 111/77
[2018-07-12] MEDS: METOPROLOL TARTRATE 25 MG TABLET PO SCH (07:32)
[2018-07-12] MEDS: LORazepam 1MG TABLET PO PRN ×2 (07:32→15:53)
[2018-07-12] MEDS: FAMOTIDINE 20 MG TABLET PO SCH (07:32)
[2018-07-12] MEDS: LOSARTAN 25MG TABLET PO SCH (07:32)
[2018-07-12] MEDS: NITROFURANTOIN (MACROBID) 100 MG CAPSULE PO SCH (07:32)
[2018-07-12] MEDS: GABAPENTIN 300 MG CAPSULE PO SCH ×2 (07:33→12:27)
[2018-07-12] MEDS: SENNA/DOCUSATE TABLET PO SCH (07:34)
[2018-07-12 13:41] VITALS: BP 90/59
[2018-07-12] MEDS: ENOXAPARIN 40 MG/0.4 ML SQ SCH (13:45)
[2018-07-12] MEDS: NICOTINE 7 MG/24 HR PATCH.TD24 TD SCH (13:45)
[2018-07-12] MEDS ORDERED: GABA300C10 PO (13:56)
[2018-07-12] MEDS ORDERED: LOSA25TA2 PO (13:56)
[2018-07-12] MEDS ORDERED: OXYC1TAB7 PO (13:56)
[2018-07-12] MEDS ORDERED: METH4TAB2 PO (14:03)
[2018-07-12 16:10] VITALS: BP 94/62
== END 2018-07-12 17:00 | disposition home or self-care (01) | DRG 543 ==
LOC: ED 10:49 → EDIP 12:06 → 4NOR 13:24 → DCLOUNGE 07-12 16:41
PROVIDERS: ADMIT Hospitalist; ATTEND Family Medicine
DX: M48.55XA Collapsed vertebra, not elsewhere classified, thoracolumbar region, initial encounter for fracture (principal); E87.1 Hypo-osmolality and hyponatremia; M25.78 Osteophyte, vertebrae; I10 Essential (primary) hypertension; G89.29 Other chronic pain; F41.9 Anxiety disorder, unspecified; Z96.649 Presence of unspecified artificial hip joint; F17.200 Nicotine dependence, unspecified, uncomplicated; E87.6 Hypokalemia; R62.7 Adult failure to thrive; E55.9 Vitamin D deficiency, unspecified; M81.0 Age-related osteoporosis without current pathological fracture; E86.0 Dehydration; F10.10 Alcohol abuse, uncomplicated; Y90.9 Presence of alcohol in blood, level not specified; Z79.899 Other long term (current) drug therapy; Z88.0 Allergy status to penicillin; Z82.5 Family history of asthma and other chronic lower respiratory diseases; Z87.440 Personal history of urinary (tract) infections
CPT/HCPCS: 36415; 72131; 72157; 72158; 80048; 80053; 80061; 81003; 82040; 82306; 82607; 83036; 83735; 84439; 84443; 85025; 99285; A9585; G0378; J1650; J3480; J0360; J2060; J7030; J7040

== ENCOUNTER 2018-07-14 09:17 | Emergency (ER) | payer SELFPAY ==
[~2018-07-14] VITALS: Ht 160 cm; Wt 43.2 kg
[~2018-07-14 09:17] MED LIST changes: +GABA100C PO; +GABA300C10 PO; +LOSA25TA2 PO; +METH4TAB2 PO; +METO25TA35 PO; +NITR100C PO; +OXYC1TAB7 PO; +POTA10TA5 PO
[2018-07-14] MEDS ORDERED: KETOROLAC 30 MG/1 ML IM ONE (11:00)
[2018-07-14] MEDS ORDERED: KETOROLAC 30 MG/1 ML ONE (11:27)
[2018-07-14 11:29] LABS: BASOPHILS # (AUTO) 0.08 x10^3/uL (0-0.1); BASOPHILS % (AUTO) 1 % (0-1); EOSINOPHILS # (AUTO) 0.01 x10^3/uL (0-0.4); EOSINOPHILS % (AUTO) 0 % (1-7); LYMPHOCYTES # (AUTO) 2.53 x10^3/uL (1-3.4); LYMPHOCYTES % (AUTO) 29 % (22-44); MD NO; MEAN CORPUSCULAR HEMOGLOBIN 31.3 pg (27.0-34.8); MEAN CORPUSCULAR HGB CONC 33.4 g/dL (32.4-35.8); MEAN CORPUSCULAR VOLUME 93.6 fL (80-100); MONOCYTES # (AUTO) 0.56 x10^3/uL (0.2-0.8); MONOCYTES % (AUTO) 7 % (2-9); NEUTROPHILS # (AUTO) 5.53 x10^3/uL (1.8-6.8); NEUTROPHILS % (AUTO) 64 % (42-75); PLATELET COUNT 514 x10^3/uL (130-400); RED BLOOD COUNT 4.73 x10^6/uL (3.82-5.3)
[2018-07-14 11:39] LABS: ALBUMIN 3.8 g/dL (3.4-5.0); ANION GAP 11 mmol/L (5-15); CHLORIDE 102 mmol/L (98-107); CREATININE 0.64 mg/dL (0.55-1.02)
[2018-07-14 11:41] LABS: MICROSCOPIC NOT IND
[2018-07-14 11:43] LABS: TROPONIN I < 0.015 ng/mL (0.000-0.045)
[2018-07-14 11:43] LABS: CULTURE INDICATED? NO
[2018-07-14 13:05] VITALS: BP 126/82
== END 2018-07-14 13:17 | disposition home or self-care (01) ==
LOC: ED 13:00
DX: G89.29 Other chronic pain (principal); M54.5 Low back pain; R07.89 Other chest pain; I10 Essential (primary) hypertension; F17.210 Nicotine dependence, cigarettes, uncomplicated; Z88.0 Allergy status to penicillin
CPT/HCPCS: 36415; 71045; 80048; 81003; 82040; 83735; 84484; 85025; 93005; 96372; 99285; J1885

== ENCOUNTER 2018-07-30 09:16 | Emergency (ER) | payer OTHER ==
[~2018-07-30] VITALS: Ht 160 cm; Wt 41.3 kg
[2018-07-30 09:17] VITALS: BP 128/93
[2018-07-30] MEDS ORDERED: GABA100C PO (09:24)
[2018-07-30] MEDS ORDERED: FURO20TA3 PO (09:24)
== END 2018-07-30 10:06 | disposition left against medical advice (07) ==
LOC: ED 09:26
DX: I10 Essential (primary) hypertension (principal); F17.200 Nicotine dependence, unspecified, uncomplicated
CPT/HCPCS: 99283

== ENCOUNTER 2018-08-16 06:31 | Emergency (ER) | payer OTHER ==
[~2018-08-16] VITALS: Ht 162.6 cm; Wt 41.5 kg
[~2018-08-16 06:31] MED LIST changes: +FURO20TA3 PO
[2018-08-16 07:22] LABS: BASOPHILS # (AUTO) 0.06 x10^3/uL (0-0.1); BASOPHILS % (AUTO) 1 % (0-1); EOSINOPHILS # (AUTO) 0.49 x10^3/uL (0-0.4); EOSINOPHILS % (AUTO) 5 % (1-7); LYMPHOCYTES # (AUTO) 3.46 x10^3/uL (1-3.4); LYMPHOCYTES % (AUTO) 35 % (22-44); MD NO; MEAN CORPUSCULAR HEMOGLOBIN 31.9 pg (27.0-34.8); MEAN CORPUSCULAR HGB CONC 33.9 g/dL (32.4-35.8); MEAN CORPUSCULAR VOLUME 94.2 fL (80-100); MEAN PLATELET VOLUME 8.1 fL (7.4-10.4); MONOCYTES # (AUTO) 1.09 x10^3/uL (0.2-0.8); MONOCYTES % (AUTO) 11 % (2-9); NEUTROPHILS # (AUTO) 4.91 x10^3/uL (1.8-6.8); NEUTROPHILS % (AUTO) 49 % (42-75); PLATELET COUNT 350 x10^3/uL (130-400); RED BLOOD COUNT 5.16 x10^6/uL (3.82-5.3); RED CELL DISTRIBUTION WIDTH 16.2 % (9.6-15.2)
[2018-08-16 07:34] LABS: ALANINE AMINOTRANSFERASE 14 U/L (12-78); ALBUMIN 3.4 g/dL (3.4-5.0); ANION GAP 6 mmol/L (5-15); CALCIUM 8.8 mg/dL (8.5-10.1); CHLORIDE 103 mmol/L (98-107)
[2018-08-16 07:36] LABS: ALKALINE PHOSPHATASE 124 U/L (45-117); BILIRUBIN,TOTAL 0.6 mg/dL (0.2-1.0); TOTAL PROTEIN 7.5 g/dL (6.4-8.2)
[2018-08-16 08:17] LABS: MICROSCOPIC INDICATED
[2018-08-16 08:26] LABS: CULTURE INDICATED? YES
[2018-08-16 09:35] VITALS: BP 166/92
== END 2018-08-16 09:37 | disposition home or self-care (01) ==
LOC: ED 07:59
DX: R06.00 Dyspnea, unspecified (principal); R11.2 Nausea with vomiting, unspecified; R19.7 Diarrhea, unspecified; I10 Essential (primary) hypertension
CPT/HCPCS: 36415; 71045; 80053; 81001; 83690; 85025; 87086; 93005; 99285

== ENCOUNTER 2019-01-15 16:41 | Inpatient (IN) | payer MEDICARE ==
[~2019-01-15] VITALS: Ht 154.9 cm; Wt 42.0 kg
--- NOTE | 2019-01-15 16:57 | NUR ---
PT BIBA; REPORT TAKEN FROM EMS. EKG DONE IN TRIAGE.
--- NOTE | 2019-01-15 17:49 | NUR ---
First contact with pt. Pt c/o diffuse abd pain with N/V/D x6 months, worse over the last 6 days. Pt states "My new doctors are just giving me all the wrong stuff." Pt placed in gown, positioned for comfort in bed with warm blanket. Continuous oxygen and BP Monitors applied, all safety measures observed.
[2019-01-15] MEDS ORDERED: OMEP40CA6 PO (17:55)
[2019-01-15] MEDS ORDERED: DICL100G19 TP (17:55)
[2019-01-15] MEDS ORDERED: ACET-76 PO (17:55)
[2019-01-15] MEDS ORDERED: METO50TA82 PO (17:55)
[2019-01-15] MEDS ORDERED: ALPR-475 PO (17:55)
[2019-01-15 17:56] LABS: BASOPHILS # (AUTO) 0.05 x10^3/uL (0-0.1); BASOPHILS % (AUTO) 1 % (0-1); EOSINOPHILS # (AUTO) 0.37 x10^3/uL (0-0.4); EOSINOPHILS % (AUTO) 4 % (1-7); LYMPHOCYTES # (AUTO) 4.62 x10^3/uL (1-3.4); LYMPHOCYTES % (AUTO) 44 % (22-44); MD NO; MEAN CORPUSCULAR HEMOGLOBIN 36.5 pg (27.0-34.8); MEAN CORPUSCULAR HGB CONC 34.7 g/dL (32.4-35.8); MEAN CORPUSCULAR VOLUME 105.3 fL (80-100); MEAN PLATELET VOLUME 7.4 fL (7.4-10.4); MONOCYTES # (AUTO) 0.98 x10^3/uL (0.2-0.8); MONOCYTES % (AUTO) 9 % (2-9); NEUTROPHILS # (AUTO) 4.47 x10^3/uL (1.8-6.8); NEUTROPHILS % (AUTO) 43 % (42-75); PLATELET COUNT 453 x10^3/uL (130-400); RED BLOOD COUNT 4.12 x10^6/uL (3.82-5.3); RED CELL DISTRIBUTION WIDTH 12.5 % (9.6-15.2)
[2019-01-15 17:59] LABS: ALANINE AMINOTRANSFERASE 17 U/L (12-78); ALBUMIN 3.8 g/dL (3.4-5.0); ANION GAP 8 mmol/L (5-15); CALCIUM 8.7 mg/dL (8.5-10.1); CHLORIDE 89 mmol/L (98-107); CREATININE 0.43 mg/dL (0.55-1.02)
--- NOTE | 2019-01-15 18:00 | NUR ---
Dr. Vega at bedside to evaluate pt.
[2019-01-15 18:03] LABS: ALKALINE PHOSPHATASE 122 U/L (45-117); BILIRUBIN,TOTAL 0.6 mg/dL (0.2-1.0); TOTAL PROTEIN 7.7 g/dL (6.4-8.2); TROPONIN I < 0.015 ng/mL (0.000-0.045)
--- NOTE | 2019-01-15 18:16 | NUR ---
Pt assisted to bedside commode for clean catch UA. Pt to CT via [facility].
[2019-01-15 18:22] LABS: MICROSCOPIC AUTO
[2019-01-15 18:28] LABS: CULTURE INDICATED? YES
[2019-01-15] MEDS ORDERED: SODIUM CHLORIDE 0.9% 1,000 ML IV ONE (18:30)
--- NOTE | 2019-01-15 18:44 | NUR ---
Pt to CT via [facility].
[2019-01-15] MEDS ORDERED: OMNIPAQUE 350 MG/ML, 100ML BOTTLE ONE (18:49)
--- NOTE | 2019-01-15 18:56 | NUR ---
Report to Mary ANN.
--- NOTE | 2019-01-15 19:04 | NUR ---
REPORT RECEIVED FROM BRISEIDA ANN.
--- NOTE | 2019-01-15 19:06 | NUR ---
PT PROVIDED BEDSIDE COMMODO. PT URINATING AT THIS TIME.
--- NOTE | 2019-01-15 20:22 | NUR ---
PT RESTING IN [place]. PT DENIES ANY NEEDS AND CONCERNS AT THIS TIME.
[2019-01-15] MEDS ORDERED: CEFTRIAXONE PMX 1GM/50ML 50 ML IV ONE (21:00)
[2019-01-15] MEDS ORDERED: CEFTRIAXONE PMX 1GM/50ML 50 ML ONE (21:01)
--- NOTE | 2019-01-15 21:31 | NUR ---
PT MEDICATED PER EMAR. PT TOLERATED WELL. PT'S AOX4. RESPS EVEN AND UNLABORED.
[2019-01-15] MEDS ORDERED: SODIUM CHLORIDE 0.9% 1,000 ML IV SCH (21:44)
--- NOTE | 2019-01-15 21:48 | NUR ---
REPORT GIVEN TO RENATA ANN. ALL QUESTIONS ANSWERED.
[2019-01-15] MEDS ORDERED: morphine SULFATE 10 MG/ML, 1ML IVPush PRN (22:00)
[2019-01-15] MEDS ORDERED: ONDANSETRON 2MG/ML, 2ML IVPush PRN (22:00)
[2019-01-15] MEDS: HEPARIN 5,000 UNITS/ML, 1ML SQ SCH (22:41)
[2019-01-15 22:47] LABS: BASOPHILS # (AUTO) 0.04 x10^3/uL (0-0.1); BASOPHILS % (AUTO) 0 % (0-1); EOSINOPHILS # (AUTO) 0.28 x10^3/uL (0-0.4); EOSINOPHILS % (AUTO) 3 % (1-7); LYMPHOCYTES # (AUTO) 3.56 x10^3/uL (1-3.4); LYMPHOCYTES % (AUTO) 43 % (22-44); MD NO; MEAN CORPUSCULAR HEMOGLOBIN 36.1 pg (27.0-34.8); MEAN CORPUSCULAR HGB CONC 34.5 g/dL (32.4-35.8); MEAN CORPUSCULAR VOLUME 104.6 fL (80-100); MEAN PLATELET VOLUME 7.1 fL (7.4-10.4); MONOCYTES # (AUTO) 0.96 x10^3/uL (0.2-0.8); MONOCYTES % (AUTO) 12 % (2-9); NEUTROPHILS # (AUTO) 3.49 x10^3/uL (1.8-6.8); NEUTROPHILS % (AUTO) 42 % (42-75); PLATELET COUNT 469 x10^3/uL (130-400); RED BLOOD COUNT 3.96 x10^6/uL (3.82-5.3); RED CELL DISTRIBUTION WIDTH 12.8 % (9.6-15.2)
[2019-01-15] MEDS ORDERED: METOPROLOL TARTRATE 50 MG TABLET PO ONE (23:00)
[2019-01-15 23:25] LABS: FOLATE LEVEL > 20.0 ng/mL (3.1-17.5)
[2019-01-16 01:52] VITALS: BP 109/69
[2019-01-16 04:25] VITALS: BP 164/100
[2019-01-16 05:48] LABS: CHLORIDE 101 mmol/L (98-107)
[2019-01-16] MEDS: HEPARIN 5,000 UNITS/ML, 1ML SQ SCH ×2 (06:00→17:50)
[2019-01-16 06:01] LABS: ALANINE AMINOTRANSFERASE 13 U/L (12-78); ALBUMIN 3.4 g/dL (3.4-5.0); ALKALINE PHOSPHATASE 117 U/L (45-117); ANION GAP 8 mmol/L (5-15); BILIRUBIN,TOTAL 0.8 mg/dL (0.2-1.0); CALCIUM 8.6 mg/dL (8.5-10.1); CREATININE 0.37 mg/dL (0.55-1.02); TOTAL PROTEIN 6.8 g/dL (6.4-8.2)
[2019-01-16 06:46] VITALS: BP 137/73
[2019-01-16] MEDS ORDERED: FUROSEMIDE 20 MG/2 ML IV ONE (08:00)
[2019-01-16] MEDS: METOPROLOL TARTRATE 50 MG TABLET PO SCH ×2 (08:37→20:52)
[2019-01-16] MEDS: FAMOTIDINE 20 MG TABLET PO SCH (08:37)
[2019-01-16] MEDS: LACTOBACILLUS CHEW TABLET PO SCH ×3 (08:37→20:52)
[2019-01-16] MEDS ORDERED: ASPIRIN 81 MG TABLET EC PO SCH (09:00)
[2019-01-16] MEDS ORDERED: ACETAMINOPHEN 325 MG TABLET ONE (10:42)
[2019-01-16] MEDS: CLOPIDOGREL 75 MG TABLET PO SCH (10:46)
[2019-01-16] MEDS: ACETAMINOPHEN 325 MG TABLET PO PRN ×2 (10:47→20:51)
[2019-01-16 13:28] VITALS: BP 128/76
[2019-01-16] MEDS ORDERED: NICOTINE 14MG/24 HR PATCH.TD24 TD SCH (15:30)
[2019-01-16] MEDS: SODIUM CHLORIDE 0.9% 1,000 ML IV SCH (15:39)
[2019-01-16 20:04] VITALS: BP 107/76
[2019-01-16 20:50] VITALS: BP 155/92
[2019-01-16] MEDS ORDERED: ATORVASTATIN 40 MG TABLET PO SCH (21:00)
[2019-01-16] MEDS ORDERED: SODIUM CHLORIDE 0.9% 1,000 ML IV SCH (21:44)
[2019-01-17 01:06] VITALS: BP 113/73
[2019-01-17] MEDS: ACETAMINOPHEN 325 MG TABLET PO PRN ×2 (02:48→10:14)
[2019-01-17 05:33] LABS: ANION GAP 7 mmol/L (5-15); CALCIUM 8.2 mg/dL (8.5-10.1); CHLORIDE 103 mmol/L (98-107)
[2019-01-17] MEDS: HEPARIN 5,000 UNITS/ML, 1ML SQ SCH (05:43)
[2019-01-17 07:37] VITALS: BP 148/93
[2019-01-17] MEDS: LACTOBACILLUS CHEW TABLET PO SCH (08:53)
[2019-01-17] MEDS: FAMOTIDINE 20 MG TABLET PO SCH (08:53)
[2019-01-17] MEDS: METOPROLOL TARTRATE 50 MG TABLET PO SCH (08:53)
[2019-01-17] MEDS: CLOPIDOGREL 75 MG TABLET PO SCH (08:53)
[2019-01-17] MEDS: SODIUM CHLORIDE 0.9% 1,000 ML IV SCH (11:30)
[2019-01-17 11:33] VITALS: BP 118/68
[2019-01-17] MEDS ORDERED: CEFTRIAXONE PMX 1GM/50ML 50 ML IV SCH (13:30)
[2019-01-17] MEDS ORDERED: ATOR40TA78 PO (13:35)
[2019-01-17] MEDS ORDERED: CEFD300C37 PO (13:35)
[2019-01-17] MEDS ORDERED: CLOP75TA PO (13:35)
[2019-01-17] MEDS ORDERED: CEFDINIR 300 MG CAPSULE PO ONE (15:00)
== END 2019-01-17 15:36 | disposition home or self-care (01) | DRG 394 ==
LOC: ED 19:47 → 4WST 21:45
PROVIDERS: ADMIT Family Medicine; ATTEND Family Medicine
DX: K55.1 Chronic vascular disorders of intestine (principal); E87.1 Hypo-osmolality and hyponatremia; N39.0 Urinary tract infection, site not specified; D53.9 Nutritional anemia, unspecified; E86.1 Hypovolemia; F10.10 Alcohol abuse, uncomplicated; F17.210 Nicotine dependence, cigarettes, uncomplicated; F41.9 Anxiety disorder, unspecified; G89.29 Other chronic pain; I10 Essential (primary) hypertension; I73.9 Peripheral vascular disease, unspecified; I77.1 Stricture of artery; K21.9 Gastro-esophageal reflux disease without esophagitis; K80.20 Calculus of gallbladder without cholecystitis without obstruction; Z88.0 Allergy status to penicillin; Z88.8 Allergy status to other drugs, medicaments and biological substances; Z96.643 Presence of artificial hip joint, bilateral
CPT/HCPCS: 36415; 74022; 74177; 80048; 80053; 81001; 82607; 82746; 83605; 83690; 84484; 85025; 87040; 87077; 87086; 87186; 93005; 96374; G0378; J0696; J1644; Q9967; J1940; J7030

== ENCOUNTER → 2019-02-03 | Outpatient (CLI) | payer MEDICARE ==
[~2019-02-03] MED LIST changes: +ACET-76 PO; +ALPR-475 PO; +ATOR-2 PO; +ATOR40TA78 PO; +CEFD300C37 PO; +CLOP75TA PO; +DICL100G19 TP; +METO50TA82 PO; +OMEP40CA6 PO
== END | disposition home or self-care (01) ==
LOC: CFH 13:37
PROVIDERS: ATTEND Internal Medicine
DX: N63.14 Unspecified lump in the right breast, lower inner quadrant (principal)
CPT/HCPCS: 76641; 77066; G0279

== ENCOUNTER 2019-02-16 10:20 | Outpatient (CLI) | payer MEDICARE ==
[2019-02-16] MEDS ORDERED: LIDOCAINE 1%-EPI 1:100K, 20ML ONE (11:41)
[2019-02-16] MEDS ORDERED: SODIUM BICARBONATE 4.0%, 5ML ONE (11:41)
== END 2019-02-16 23:59 | disposition home or self-care (01) ==
LOC: CFH 10:20
PROVIDERS: ATTEND Nurse Practitioner Family
DX: D05.11 Intraductal carcinoma in situ of right breast (principal)
CPT/HCPCS: 19083; 77065; 88305; 88360; J3490; 19285

== ENCOUNTER 2019-02-18 11:09 | Emergency (ER) | payer MEDICARE ==
[~2019-02-18] VITALS: Ht 154.9 cm; Wt 40.0 kg
--- NOTE | 2019-02-18 11:09 | NUR ---
BIBA from home c/o increasing epigastric abd pain at hernia site since this AM, +reducible, very anxious; last 2 beers & CBD tincture this AM, "ran out of tramadol yesterday", right breast punture w steristrips; PIV, 12mg ketamine, 100mg fentanyl, 4mg zofran LOCK SETTER; pt changed into gown, anxious but responds approp to staff, comfort measures provided, call light within reach; cardiac, NIBP & SpO2 monitors in place.
[2019-02-18] MEDS ORDERED: TRAM50TA2 PO (11:43)
[2019-02-18] MEDS ORDERED: LORazepam 2 MG/ML, 1ML ONE (11:51)
[2019-02-18] MEDS ORDERED: ONDANSETRON 2MG/ML, 2ML ONE (11:51)
[2019-02-18] MEDS ORDERED: LORazepam 2 MG/ML, 1ML IVPush ONE (12:00)
[2019-02-18] MEDS ORDERED: SODIUM CHLORIDE FLUSH 10ML SYR IVF ONE (12:00)
[2019-02-18] MEDS ORDERED: ONDANSETRON 2MG/ML, 2ML IVPush ONE (12:00)
--- NOTE | 2019-02-18 12:06 | NUR ---
pt upright on gurney awake & mostly anxious but responds approp to staff, NAD, comfort measures provided, call light within reach.
[2019-02-18 12:20] LABS: BASOPHILS # (AUTO) 0.04 x10^3/uL (0-0.1); BASOPHILS % (AUTO) 1 % (0-1); EOSINOPHILS # (AUTO) 0.12 x10^3/uL (0-0.4); EOSINOPHILS % (AUTO) 2 % (1-7); LYMPHOCYTES % (AUTO) 35 % (22-44); MD NO; MEAN CORPUSCULAR HGB CONC 33.2 g/dL (32.4-35.8); MEAN CORPUSCULAR VOLUME 105.3 fL (80-100); MEAN PLATELET VOLUME 7.5 fL (7.4-10.4); MONOCYTES # (AUTO) 0.76 x10^3/uL (0.2-0.8); MONOCYTES % (AUTO) 9 % (2-9); NEUTROPHILS # (AUTO) 4.55 x10^3/uL (1.8-6.8); NEUTROPHILS % (AUTO) 54 % (42-75); PLATELET COUNT 380 x10^3/uL (130-400); RED BLOOD COUNT 3.94 x10^6/uL (3.82-5.3); RED CELL DISTRIBUTION WIDTH 13.1 % (9.6-15.2)
[2019-02-18 12:33] LABS: ALANINE AMINOTRANSFERASE 18 U/L (12-78); ALBUMIN 3.5 g/dL (3.4-5.0); ANION GAP 11 mmol/L (5-15); CALCIUM 8.4 mg/dL (8.5-10.1); CHLORIDE 98 mmol/L (98-107); CREATININE 0.36 mg/dL (0.55-1.02)
[2019-02-18 12:35] LABS: ALKALINE PHOSPHATASE 134 U/L (45-117); BILIRUBIN,TOTAL 0.6 mg/dL (0.2-1.0); TOTAL PROTEIN 6.6 g/dL (6.4-8.2)
[2019-02-18 12:56] VITALS: BP 150/77
--- NOTE | 2019-02-18 12:57 | NUR ---
pt ambulated with FWW to BR, back to [facility] awake, calmer & more comfortable (back to baseline), responds approp to staff, NAD, comfort measures provided, call light within reach.
[2019-02-18 13:08] LABS: MICROSCOPIC AUTO
[2019-02-18 13:09] LABS: CULTURE INDICATED? YES
--- NOTE | 2019-02-18 13:37 | NUR ---
Patient given discharge instructions and Rx, they have confirmed that they understand the instructions. Patient ambulatory with FWW.
--- NOTE | 2019-02-18 14:30 | NUR ---
pt upright on gurney awake, calm & comfortable (@ baseline), responds approp to staff, NAD, awaiting ride- "son is on his way", call light within reach.
--- NOTE | 2019-02-18 15:06 | NUR ---
son arrived at , pt to DC desk via WC (personal FWW at home).
== END 2019-02-18 15:09 | disposition home or self-care (01) ==
LOC: ED 11:44
DX: R42 Dizziness and giddiness (principal); R10.13 Epigastric pain; F17.200 Nicotine dependence, unspecified, uncomplicated; I10 Essential (primary) hypertension
CPT/HCPCS: 36415; 74022; 80053; 81001; 83690; 85025; 87086; 93005; 96374; 96375; 99284; J2060; J2405

== ENCOUNTER 2019-02-20 05:25 | Inpatient (IN) | payer MEDICARE ==
[~2019-02-20] VITALS: Ht 157.5 cm; Wt 48.2 kg
[~2019-02-20 05:25] MED LIST changes: +TRAM50TA2 PO
--- NOTE | 2019-02-20 05:48 | NUR ---
bib [facility] d/t abdomen pain abdomen pain was worseded since after home . vss stable dr can at bed side for er eval
[2019-02-20] MEDS ORDERED: MORPHINE SULFATE 4 MG/ML, 1ML IVPush PRN (06:00)
[2019-02-20] MEDS ORDERED: ONDANSETRON 2MG/ML, 2ML IVPush ONE (06:00)
[2019-02-20] MEDS ORDERED: MORPHINE SULFATE 4 MG/ML, 1ML ONE (06:16)
[2019-02-20] MEDS ORDERED: ONDANSETRON 2MG/ML, 2ML ONE (06:16)
--- NOTE | 2019-02-20 06:23 | NUR ---
pt medicated per mar
[2019-02-20 06:37] LABS: BASOPHILS # (AUTO) 0.02 x10^3/uL (0-0.1); BASOPHILS % (AUTO) 0 % (0-1); EOSINOPHILS # (AUTO) 0.04 x10^3/uL (0-0.4); EOSINOPHILS % (AUTO) 1 % (1-7); LYMPHOCYTES % (AUTO) 27 % (22-44); MD NO; MEAN CORPUSCULAR HEMOGLOBIN 36.7 pg (27.0-34.8); MEAN CORPUSCULAR HGB CONC 34.8 g/dL (32.4-35.8); MEAN CORPUSCULAR VOLUME 105.4 fL (80-100); MEAN PLATELET VOLUME 7.4 fL (7.4-10.4); MONOCYTES % (AUTO) 11 % (2-9); NEUTROPHILS # (AUTO) 4.24 x10^3/uL (1.8-6.8); NEUTROPHILS % (AUTO) 61 % (42-75); PLATELET COUNT 389 x10^3/uL (130-400); RED CELL DISTRIBUTION WIDTH 12.6 % (9.6-15.2)
[2019-02-20 06:45] LABS: ALANINE AMINOTRANSFERASE 18 U/L (12-78); ALBUMIN 3.8 g/dL (3.4-5.0); CALCIUM 8.7 mg/dL (8.5-10.1); CHLORIDE 87 mmol/L (98-107); CREATININE 0.37 mg/dL (0.55-1.02)
[2019-02-20 06:47] LABS: ALKALINE PHOSPHATASE 140 U/L (45-117); TOTAL PROTEIN 7.1 g/dL (6.4-8.2)
--- NOTE | 2019-02-20 06:58 | NUR ---
report given to néstor heredia
[2019-02-20] MEDS ORDERED: OMNIPAQUE 350 MG/ML, 100ML BOTTLE ONE (07:00)
--- NOTE | 2019-02-20 07:01 | NUR ---
Recieved report from SETH Gross. All questions answered. First contact with pt. Pt resting on gurney after returning from CT. Pt states, "my pain is 10/10 all over. I need to pee. I want a bedside commode. I want an Ativan, I am shaking like a nervous wreck. I thought I was going to fall all night." DORAN. Pt has both bedside rails up for safety measures. Call light within reach. RN to get bedside commode for pt.
[2019-02-20 07:04] LABS: INTERNATIONAL NORMALIZED RATIO 0.99 (0.93-1.1); PROTHROMBIN TIME 10.4 Seconds (9.6-11.5)
--- NOTE | 2019-02-20 07:14 | NUR ---
Pt up SBA to bedside commode. Pt returned to [facility], re-connected to NIBP, continous pulse ox, and conveyor monitor. Both bedside rails up on [facility] for safety measures. Pt requesting pain control and Ativan. ED MD aware. Call light within reach. Pt states 10/10 pain "all over".
[2019-02-20 07:16] LABS: ANION GAP 9 mmol/L (5-15)
[2019-02-20] MEDS ORDERED: LORazepam 2 MG/ML, 1ML ONE (07:16)
--- NOTE | 2019-02-20 07:29 | NUR ---
Provided pt medication per EMAR. Pt appreciative. All safety measures in place. Call light within reach.
[2019-02-20] MEDS ORDERED: LORazepam 2 MG/ML, 1ML IVPush ONE (07:30)
[2019-02-20] MEDS ORDERED: SODIUM CHLORIDE 0.9% 1,000 ML IV SCH (09:30)
[2019-02-20] MEDS ORDERED: SODI1TAB15 PO (09:46)
[2019-02-20] MEDS ORDERED: LORA-446 PO (09:46)
--- NOTE | 2019-02-20 10:15 | NUR ---
Provided report to SETH Hawk. All questions answered. Pt ready to transfer to floor from ED.
--- NOTE | 2019-02-20 10:32 | NUR ---
Pt transfered to floor from ED and left with all personal belongings.
[2019-02-20] MEDS ORDERED: ONDANSETRON 2MG/ML, 2ML IVPush PRN (11:00)
[2019-02-20] MEDS ORDERED: FAMOTIDINE 20 MG TABLET PO SCH (11:00)
[2019-02-20] MEDS ORDERED: hydrALAzine 20 MG/ML, 1ML IVPush PRN (11:00)
[2019-02-20] MEDS ORDERED: morphine SULFATE 10 MG/ML, 1ML IVPush PRN (11:00)
[2019-02-20] MEDS ORDERED: DOCUSATE 100 MG CAPSULE PO PRN (11:00)
[2019-02-20] MEDS ORDERED: TRAZODONE 50MG TABLET PO PRN (11:00)
[2019-02-20] MEDS ORDERED: GUAIFENESIN/COD200MG-20MG/10ML LIQUID PO PRN (11:00)
[2019-02-20] MEDS ORDERED: ACETAMINOPHEN 325 MG TABLET PO PRN (11:00)
[2019-02-20] MEDS ORDERED: CYCLOBENZAPRINE 10 MG TABLET PO PRN (11:00)
[2019-02-20] MEDS ORDERED: OXYcodone IR 5MG TABLET PO PRN (11:00)
[2019-02-20] MEDS ORDERED: ENOXAPARIN 40 MG/0.4 ML SQ SCH (11:00)
[2019-02-20 11:21] VITALS: BP 107/70
[2019-02-20] MEDS: CLOPIDOGREL 75 MG TABLET PO SCH (13:18)
[2019-02-20] MEDS: METOPROLOL TARTRATE 50 MG TABLET PO SCH ×2 (13:20→20:11)
[2019-02-20] MEDS: NICOTINE 7 MG/24 HR PATCH.TD24 TD SCH (13:21)
[2019-02-20 14:37] LABS: ANION GAP 7 mmol/L (5-15); CALCIUM 8.4 mg/dL (8.5-10.1); CHLORIDE 92 mmol/L (98-107); CREATININE 0.85 mg/dL (0.55-1.02)
[2019-02-20] MEDS ORDERED: POTASSIUM CHLORIDE 20 MEQ in SODIUM CHLORIDE 0.45% 1,000 ML IV SCH (15:30)
[2019-02-20] MEDS: POTASSIUM CHLORIDE 20 MEQ TAB.ER.PRT PO SCH ×2 (15:58→20:12)
[2019-02-20] MEDS: SODIUM CHLORIDE 0.9% 1,000 ML IV SCH (16:00)
[2019-02-20 16:23] VITALS: BP 100/64
[2019-02-20 16:29] VITALS: BP 99/57
[2019-02-20 16:35] VITALS: BP 131/87
[2019-02-20 20:07] VITALS: BP 182/94
[2019-02-20] MEDS: ATORVASTATIN 20 MG TABLET PO SCH (20:11)
[2019-02-20 21:46] LABS: ANION GAP 5 mmol/L (5-15); CALCIUM 7.9 mg/dL (8.5-10.1); CHLORIDE 98 mmol/L (98-107); CREATININE 0.44 mg/dL (0.55-1.02)
[2019-02-21 01:02] VITALS: BP 110/72
[2019-02-21] MEDS ORDERED: SODIUM CHLORIDE 0.45% 1,000 ML IV SCH (02:30)
[2019-02-21] MEDS: OMEPRAZOLE 20 MG CAPSULE.DR PO SCH (05:14)
[2019-02-21 05:57] LABS: BASOPHILS # (AUTO) 0.04 x10^3/uL (0-0.1); BASOPHILS % (AUTO) 1 % (0-1); EOSINOPHILS % (AUTO) 3 % (1-7); LYMPHOCYTES % (AUTO) 45 % (22-44); MD NO; MEAN CORPUSCULAR HEMOGLOBIN 35.7 pg (27.0-34.8); MEAN CORPUSCULAR VOLUME 105.2 fL (80-100); MEAN PLATELET VOLUME 7.7 fL (7.4-10.4); MONOCYTES # (AUTO) 1.03 x10^3/uL (0.2-0.8); MONOCYTES % (AUTO) 13 % (2-9); NEUTROPHILS # (AUTO) 3.22 x10^3/uL (1.8-6.8); NEUTROPHILS % (AUTO) 40 % (42-75); PLATELET COUNT 326 x10^3/uL (130-400); RED CELL DISTRIBUTION WIDTH 12.9 % (9.6-15.2)
[2019-02-21 05:58] LABS: ANION GAP 4 mmol/L (5-15); CALCIUM 8.4 mg/dL (8.5-10.1); CHLORIDE 99 mmol/L (98-107); CREATININE 0.44 mg/dL (0.55-1.02)
[2019-02-21] MEDS: SODIUM CHLORIDE 0.9% 1,000 ML IV SCH ×2 (08:00)
[2019-02-21] MEDS ORDERED: ACETAMINOPHEN 325 MG TABLET PO PRN (08:00)
[2019-02-21] MEDS: HEPARIN 5,000 UNITS/ML, 1ML SQ SCH ×2 (08:00→19:20)
[2019-02-21 08:03] VITALS: BP 197/109
[2019-02-21] MEDS: METOPROLOL TARTRATE 50 MG TABLET PO SCH ×2 (08:48→19:21)
[2019-02-21] MEDS: LACTOBACILLUS CHEW TABLET PO SCH ×3 (08:48→19:20)
[2019-02-21] MEDS: CLOPIDOGREL 75 MG TABLET PO SCH (08:48)
[2019-02-21] MEDS ORDERED: D5%-0.45% NACL 1,000 ML IV SCH (09:00)
[2019-02-21] MEDS: D5%-0.45% NACL 1,000 ML IV SCH (09:30)
[2019-02-21 09:53] VITALS: BP 177/60
[2019-02-21] MEDS: NICOTINE 7 MG/24 HR PATCH.TD24 TD SCH (14:17)
[2019-02-21 14:45] VITALS: BP 158/87
[2019-02-21] MEDS: ATORVASTATIN 20 MG TABLET PO SCH (19:21)
[2019-02-21 19:41] VITALS: BP 155/76
[2019-02-22 01:42] VITALS: BP 127/61
[2019-02-22] MEDS: SODIUM CHLORIDE 0.45% 1,000 ML IV SCH ×2 (02:40→20:08)
[2019-02-22] MEDS: D5%-0.45% NACL 1,000 ML IV SCH (02:41)
[2019-02-22] MEDS: OMEPRAZOLE 20 MG CAPSULE.DR PO SCH (05:14)
[2019-02-22 05:48] LABS: ANION GAP 5 mmol/L (5-15); CALCIUM 8.3 mg/dL (8.5-10.1); CHLORIDE 95 mmol/L (98-107); CREATININE 0.43 mg/dL (0.55-1.02)
[2019-02-22] MEDS: HEPARIN 5,000 UNITS/ML, 1ML SQ SCH ×2 (08:00→20:00)
[2019-02-22] MEDS: LACTOBACILLUS CHEW TABLET PO SCH ×3 (08:24→20:09)
[2019-02-22] MEDS: METOPROLOL TARTRATE 50 MG TABLET PO SCH ×2 (08:24→20:10)
[2019-02-22] MEDS: CLOPIDOGREL 75 MG TABLET PO SCH (08:24)
[2019-02-22 14:04] VITALS: BP 165/90
[2019-02-22] MEDS: NICOTINE 7 MG/24 HR PATCH.TD24 TD SCH (16:26)
[2019-02-22] MEDS: ATORVASTATIN 20 MG TABLET PO SCH (20:09)
[2019-02-22 21:16] VITALS: BP 150/92
[2019-02-23 01:06] VITALS: BP 133/75
[2019-02-23] MEDS: OMEPRAZOLE 20 MG CAPSULE.DR PO SCH (05:03)
[2019-02-23 05:56] LABS: ANION GAP 8 mmol/L (5-15); CALCIUM 8.6 mg/dL (8.5-10.1); CHLORIDE 99 mmol/L (98-107)
[2019-02-23 05:58] LABS: CREATININE 0.48 mg/dL (0.55-1.02)
[2019-02-23] MEDS: METOPROLOL TARTRATE 50 MG TABLET PO SCH ×2 (08:00→20:00)
[2019-02-23] MEDS: LACTOBACILLUS CHEW TABLET PO SCH ×3 (08:00→20:00)
[2019-02-23] MEDS: HEPARIN 5,000 UNITS/ML, 1ML SQ SCH ×2 (08:00→19:59)
[2019-02-23] MEDS: CLOPIDOGREL 75 MG TABLET PO SCH (08:00)
[2019-02-23 14:36] VITALS: BP 129/75
[2019-02-23] MEDS: NICOTINE 7 MG/24 HR PATCH.TD24 TD SCH (15:35)
[2019-02-23 19:10] VITALS: BP 137/77
[2019-02-23] MEDS: ATORVASTATIN 20 MG TABLET PO SCH (20:00)
[2019-02-24 01:22] VITALS: BP 120/73
[2019-02-24] MEDS: SODIUM CHLORIDE 0.45% 1,000 ML IV SCH ×2 (02:30→17:15)
[2019-02-24] MEDS: OMEPRAZOLE 20 MG CAPSULE.DR PO SCH (04:48)
[2019-02-24] MEDS: CLOPIDOGREL 75 MG TABLET PO SCH (07:15)
[2019-02-24] MEDS: LACTOBACILLUS CHEW TABLET PO SCH ×3 (07:15→20:03)
[2019-02-24] MEDS: METOPROLOL TARTRATE 50 MG TABLET PO SCH ×2 (07:15→20:04)
[2019-02-24] MEDS: HEPARIN 5,000 UNITS/ML, 1ML SQ SCH ×2 (07:16→20:00)
[2019-02-24 08:00] VITALS: BP 128/78
[2019-02-24 08:05] LABS: ANION GAP 7 mmol/L (5-15); CALCIUM 8.9 mg/dL (8.5-10.1); CHLORIDE 97 mmol/L (98-107); CREATININE 0.47 mg/dL (0.55-1.02)
[2019-02-24] MEDS ORDERED: MAGNESIUM SULFATE PMX 2GM/50ML 25 ML IV ONE (08:30)
[2019-02-24 13:05] VITALS: BP 98/56
[2019-02-24] MEDS: NICOTINE 7 MG/24 HR PATCH.TD24 TD SCH (14:31)
[2019-02-24 19:15] VITALS: BP 165/83
[2019-02-24] MEDS: ATORVASTATIN 20 MG TABLET PO SCH (20:03)
[2019-02-25 02:02] VITALS: BP 122/74
[2019-02-25] MEDS: OMEPRAZOLE 20 MG CAPSULE.DR PO SCH (05:03)
[2019-02-25 05:47] LABS: CHLORIDE 103 mmol/L (98-107)
[2019-02-25 06:05] LABS: ANION GAP 7 mmol/L (5-15); CALCIUM 8.8 mg/dL (8.5-10.1); CREATININE 0.44 mg/dL (0.55-1.02)
[2019-02-25 06:48] VITALS: BP 146/82
[2019-02-25] MEDS: HEPARIN 5,000 UNITS/ML, 1ML SQ SCH (08:00)
[2019-02-25] MEDS: CLOPIDOGREL 75 MG TABLET PO SCH (09:57)
[2019-02-25] MEDS: LACTOBACILLUS CHEW TABLET PO SCH (09:58)
[2019-02-25] MEDS: METOPROLOL TARTRATE 50 MG TABLET PO SCH (09:58)
[2019-02-25] MEDS: SODIUM CHLORIDE 0.45% 1,000 ML IV SCH (10:00)
[2019-02-25] MEDS ORDERED: ALPR-475 PO (11:09)
[2019-02-25] MEDS ORDERED: NICO-485 TD (11:09)
[2019-02-25] MEDS ORDERED: ACID1TAB7 PO (11:09)
[2019-02-28] MEDS ORDERED: ATOR40TA78 PO (07:25)
== END 2019-02-25 14:30 | disposition home or self-care (01) | DRG 640 ==
LOC: ED 07:49 → EDIP 09:08 → 3NE 10:25
PROVIDERS: ADMIT Hospitalist; ATTEND Hospitalist
DX: E87.1 Hypo-osmolality and hyponatremia (principal); J96.00 Acute respiratory failure, unspecified whether with hypoxia or hypercapnia; E44.0 Moderate protein-calorie malnutrition; Z68.1 Body mass index [BMI] 19.9 or less, adult; E86.0 Dehydration; E87.6 Hypokalemia; E86.1 Hypovolemia; E83.42 Hypomagnesemia; F10.20 Alcohol dependence, uncomplicated; F17.210 Nicotine dependence, cigarettes, uncomplicated; F41.9 Anxiety disorder, unspecified; G89.29 Other chronic pain; I73.9 Peripheral vascular disease, unspecified; I10 Essential (primary) hypertension; R56.9 Unspecified convulsions; Z88.0 Allergy status to penicillin
CPT/HCPCS: 36415; 74177; 80048; 80053; 83605; 83690; 83735; 84100; 84443; 85025; 85610; 85730; 96374; 96375; G0378; J1650; J2405; J3480; Q9967; J2060; J3475; J7030

== ENCOUNTER 2019-03-03 13:56 | Emergency (ER) | payer MEDICARE ==
[~2019-03-03] VITALS: Ht 157.5 cm; Wt 43.0 kg
[~2019-03-03 13:56] MED LIST changes: +LORA-446 PO; +NICO-485 TD; +SODI1TAB15 PO
--- NOTE | 2019-03-03 14:17 | NUR ---
Bib by gi for bilateral upper quadrant abdominal pain. Patient reports flare of pain x 2 days after she ran out of tramadol. +n/v/d. 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
[2019-03-03] MEDS ORDERED: METO50TA82 PO (14:21)
[2019-03-03] MEDS ORDERED: HYDROmorphone 2 MG/ML, 1ML IVPush PRN (14:30)
[2019-03-03] MEDS ORDERED: ONDANSETRON 2MG/ML, 2ML IVPush ONE (14:30)
[2019-03-03] MEDS ORDERED: PROMETHAZINE 25 MG/ML, 1ML IM ONE (14:30)
[2019-03-03] MEDS ORDERED: SODIUM CHLORIDE 0.9% 1,000ML IVBOLUS ONE (14:30)
[2019-03-03 14:56] LABS: MICROSCOPIC AUTO
--- NOTE | 2019-03-03 15:05 | NUR ---
MARKETING STRATEGY ANALYST TO ATTEMPT TO USE ULTRASOUND FOR PIV ACCESS PATIENT DIFFICULT STICK. LAB EVEN W/ TROUBLE USING VENIPUNCTURE
[2019-03-03 15:06] LABS: BASOPHILS # (AUTO) 0.06 x10^3/uL (0-0.1); BASOPHILS % (AUTO) 1 % (0-1); EOSINOPHILS # (AUTO) 0.13 x10^3/uL (0-0.4); EOSINOPHILS % (AUTO) 2 % (1-7); LYMPHOCYTES % (AUTO) 45 % (22-44); MD NO; MEAN CORPUSCULAR HEMOGLOBIN 35.1 pg (27.0-34.8); MEAN CORPUSCULAR HGB CONC 33.6 g/dL (32.4-35.8); MEAN CORPUSCULAR VOLUME 104.5 fL (80-100); MEAN PLATELET VOLUME 7.2 fL (7.4-10.4); MONOCYTES # (AUTO) 0.85 x10^3/uL (0.2-0.8); MONOCYTES % (AUTO) 10 % (2-9); NEUTROPHILS # (AUTO) 3.49 x10^3/uL (1.8-6.8); NEUTROPHILS % (AUTO) 42 % (42-75); PLATELET COUNT 473 x10^3/uL (130-400)
[2019-03-03 15:09] LABS: CULTURE INDICATED? YES
[2019-03-03 15:16] LABS: INTERNATIONAL NORMALIZED RATIO 0.97 (0.93-1.1); PROTHROMBIN TIME 10.2 Seconds (9.6-11.5)
[2019-03-03 15:17] LABS: ALANINE AMINOTRANSFERASE 30 U/L (12-78); ALBUMIN 3.9 g/dL (3.4-5.0); ANION GAP 7 mmol/L (5-15); CALCIUM 9.1 mg/dL (8.5-10.1); CHLORIDE 99 mmol/L (98-107); CREATININE 0.43 mg/dL (0.55-1.02)
[2019-03-03 15:20] LABS: ALKALINE PHOSPHATASE 109 U/L (45-117); BILIRUBIN,TOTAL 0.6 mg/dL (0.2-1.0); TOTAL PROTEIN 7.7 g/dL (6.4-8.2)
[2019-03-03] MEDS ORDERED: HYDROmorphone 2 MG/ML, 1ML ONE (15:54)
[2019-03-03] MEDS ORDERED: ONDANSETRON 2MG/ML, 2ML ONE (15:54)
[2019-03-03] MEDS ORDERED: PROMETHAZINE 25 MG/ML, 1ML ONE (15:54)
--- NOTE | 2019-03-03 16:10 | NUR ---
PATIENT ACCIDENTILLY PULLED IV PARTIALLY OUT SO IT INFILTRATED. PIV REMOVED LUNCH REPORT TO LISA ANN- LISA TO PLACE NEW PIV
--- NOTE | 2019-03-03 16:12 | NUR ---
MANAGER UNION ABLE TO OBTAIN PIV-MEDICATED PER EMAR VSS-REMAINS W/ 06/10 ABD PAIN WELL HYPERTENSIVE (PAIN CAUSED?) UPDATED ON POC CALL OLIVERA IN HAND/SIDE RAILS UP
--- NOTE | 2019-03-03 16:50 | NUR ---
NEW PIV OBTAINED TO LEFT FOREARM-PATIENT TO CT SCAN PRIOR PIV SITE NON PAINFUL/MINIMAL SWELLING-ELEVATED ON PILLOW
[2019-03-03] MEDS ORDERED: OMNIPAQUE 350 MG/ML, 100ML BOTTLE ONE (17:09)
--- NOTE | 2019-03-03 17:44 | NUR ---
PATIENT HAS VOIDED 7 TIMES SINCE ARRIVAL-DISCUSSED W/ PROVIDER IN SETTING ON MILD TESTING RESULTS. PAIN MEDICATION HAS RESOLVED PAIN TO 4/10, NAUSEA COMPLETELY IMPROVED UPDATE DON POC CALL OLIVERA IN HAND/ SIDE RAILS UP
[2019-03-03] MEDS ORDERED: LORazepam 1MG TABLET PO ONE (18:00)
[2019-03-03] MEDS ORDERED: ZIPRASIDONE 20 MG INJ IM ONE ×2 (18:30→18:50)
[2019-03-03] MEDS ORDERED: LORazepam 1MG TABLET ONE (18:50)
--- NOTE | 2019-03-03 18:58 | NUR ---
patient medicated w/ ativan, sergio refused as patient to be discharged home. Continues to report 3/10 upper quadrant abd pain vss updated on pending d/c-advised to make ride arrangments (property underwriter to provide cab vouvher if needed)
[2019-03-03 19:14] VITALS: BP 170/73
--- NOTE | 2019-03-03 19:15 | NUR ---
PATIENT DISCHARGED VIA SAND WHEELER PROVIDED TAXI VOUCHER. AMBULATORY W/ WHEELCHAIR WITH NO DEFICITS. SAND WHEELER COMFORTABLE SENDING HER HOME IN THE SETTING OF ECEN NARCOTICS APTIENT VERÓNICA TO ANY OF THE ADMINISTERED MEDICATIONS AND DOES NOT APPEARS TO BE OVERLY MEDICATED PER MY EXAM.
== END 2019-03-03 19:28 | disposition home or self-care (01) ==
LOC: ED 14:25
DX: R10.84 Generalized abdominal pain (principal); K59.00 Constipation, unspecified; R11.2 Nausea with vomiting, unspecified; I10 Essential (primary) hypertension; F17.200 Nicotine dependence, unspecified, uncomplicated; Z96.649 Presence of unspecified artificial hip joint
CPT/HCPCS: 36415; 74174; 80053; 81001; 83605; 83690; 85025; 85610; 85730; 87086; 96361; 96372; 96374; 96375; 99284; J1170; J2405; J2550; J7030; Q9967

== ENCOUNTER 2019-03-05 22:26 | Emergency (ER) | payer MEDICARE ==
[~2019-03-05] VITALS: Ht 157.5 cm; Wt 43.2 kg
--- NOTE | 2019-03-05 22:40 | NUR ---
PT BIB [facility] FROM HOME. C/O CHRONIC ABD PAIN, BACK PAIN, AND PAIN "ALL OVER". PT STATES IT'S SO BAD THAT SHE CAN'T EAT OR SLEEP. STATES, "TRAMADOL ISN'T WORKING." PT TENDER TO TOUCH ALL OVER HER BODY. ERP WAS IN TO SEE PT. ALL NEEDS ADDRESSED.
[2019-03-05 23:00] VITALS: BP 172/89
--- NOTE | 2019-03-05 23:11 | NUR ---
PT STATED SHE WAS TOO DIZZY TO AMBULATE TO BR. ASSISTED TO BR VIA WC. LAB AT NOW.
[2019-03-05 23:23] LABS: BASOPHILS # (AUTO) 0.05 x10^3/uL (0-0.1); BASOPHILS % (AUTO) 1 % (0-1); EOSINOPHILS # (AUTO) 0.17 x10^3/uL (0-0.4); EOSINOPHILS % (AUTO) 2 % (1-7); LYMPHOCYTES # (AUTO) 3.07 x10^3/uL (1-3.4); LYMPHOCYTES % (AUTO) 28 % (22-44); MD NO; MEAN CORPUSCULAR HEMOGLOBIN 35.5 pg (27.0-34.8); MEAN CORPUSCULAR HGB CONC 34.2 g/dL (32.4-35.8); MEAN CORPUSCULAR VOLUME 103.7 fL (80-100); MEAN PLATELET VOLUME 7.3 fL (7.4-10.4); MONOCYTES # (AUTO) 0.89 x10^3/uL (0.2-0.8); MONOCYTES % (AUTO) 8 % (2-9); NEUTROPHILS # (AUTO) 6.87 x10^3/uL (1.8-6.8); NEUTROPHILS % (AUTO) 62 % (42-75); PLATELET COUNT 485 x10^3/uL (130-400); RED BLOOD COUNT 4.36 x10^6/uL (3.82-5.3); RED CELL DISTRIBUTION WIDTH 12.8 % (9.6-15.2)
[2019-03-05 23:31] LABS: ANION GAP 6 mmol/L (5-15); CALCIUM 9.4 mg/dL (8.5-10.1); CHLORIDE 100 mmol/L (98-107); CREATININE 0.52 mg/dL (0.55-1.02)
--- NOTE | 2019-03-05 23:31 | NUR ---
PT REQUESTING PAIN MEDICATION, STATES, "I JUST CAN'T HANDLE IT ANYMORE!" ERP NOTIFIED.
--- NOTE | 2019-03-06 | NUR ---
ERP WAS IN FOR RE-EVAL. D/C INSTRUCTIONS & F/U APPT RV'WD WITH PT, SHE VERBALIZES UNDERSTANDING. ASSISTED OUT OF ED VIA WC. CAB VOUCHER PROVIDED.
== END 2019-03-06 00:02 | disposition home or self-care (01) ==
LOC: ED 22:33
DX: I70.90 Unspecified atherosclerosis (principal); I77.9 Disorder of arteries and arterioles, unspecified; G89.29 Other chronic pain; I10 Essential (primary) hypertension; F17.200 Nicotine dependence, unspecified, uncomplicated
CPT/HCPCS: 36415; 80048; 85025; 99283

== ENCOUNTER 2019-03-06 08:02 | Emergency (ER) | payer MEDICARE ==
[~2019-03-06] VITALS: Ht 160 cm; Wt 43.0 kg
[2019-03-06 09:07] LABS: BASOPHILS # (AUTO) 0.05 x10^3/uL (0-0.1); BASOPHILS % (AUTO) 1 % (0-1); EOSINOPHILS # (AUTO) 0.05 x10^3/uL (0-0.4); EOSINOPHILS % (AUTO) 1 % (1-7); LYMPHOCYTES # (AUTO) 2.36 x10^3/uL (1-3.4); LYMPHOCYTES % (AUTO) 27 % (22-44); MD NO; MEAN CORPUSCULAR HEMOGLOBIN 34.9 pg (27.0-34.8); MEAN CORPUSCULAR HGB CONC 33.6 g/dL (32.4-35.8); MEAN CORPUSCULAR VOLUME 103.9 fL (80-100); MEAN PLATELET VOLUME 7.5 fL (7.4-10.4); MONOCYTES # (AUTO) 0.77 x10^3/uL (0.2-0.8); MONOCYTES % (AUTO) 9 % (2-9); NEUTROPHILS % (AUTO) 63 % (42-75); PLATELET COUNT 470 x10^3/uL (130-400); RED BLOOD COUNT 3.98 x10^6/uL (3.82-5.3); RED CELL DISTRIBUTION WIDTH 12.8 % (9.6-15.2)
[2019-03-06 09:12] LABS: ALBUMIN 3.7 g/dL (3.4-5.0); ANION GAP 10 mmol/L (5-15); CALCIUM 8.8 mg/dL (8.5-10.1); CHLORIDE 101 mmol/L (98-107)
[2019-03-06 09:16] LABS: ALANINE AMINOTRANSFERASE 25 U/L (12-78); ALKALINE PHOSPHATASE 104 U/L (45-117); BILIRUBIN,TOTAL 1.7 mg/dL (0.2-1.0); CREATININE 0.36 mg/dL (0.55-1.02); TROPONIN I < 0.015 ng/mL (0.000-0.045)
[2019-03-06] MEDS ORDERED: LORazepam 1MG TABLET ONE (10:09)
[2019-03-06] MEDS: LORazepam 1MG TABLET PO ONE (10:11)
--- NOTE | 2019-03-06 10:19 | NUR ---
report from néstor iyer. pt resting in bed. med rec complete. pt medicated per mar and provided h2o. pa notified of need for sw consult. vss. no other needs expressed.
[2019-03-06 10:25] LABS: CULTURE INDICATED? YES; MICROSCOPIC INDICATED
[2019-03-06] MEDS ORDERED: LORazepam 2 MG/ML, 1ML IVPush ONE (10:30)
--- NOTE | 2019-03-06 11:36 | NUR ---
pt resting in room. vss. no needs expressed. call light within reach. awaiting sw consult.
--- NOTE | 2019-03-06 12:13 | NUR ---
sw consult complete. plan to dc via [employer] at 1300.
[2019-03-06 12:33] VITALS: BP 124/85
--- NOTE | 2019-03-06 12:33 | NUR ---
PT RESTING IN ROOM. VSS. NO NEEDS. CALL LIGHT WITHIN REACH. PLAN TO DC VIA [facility] AT 1300.
== END 2019-03-06 13:05 | disposition home or self-care (01) ==
LOC: ED 09:38
DX: F41.1 Generalized anxiety disorder (principal); N30.00 Acute cystitis without hematuria; I10 Essential (primary) hypertension; Z96.649 Presence of unspecified artificial hip joint
CPT/HCPCS: 36415; 71046; 80053; 80307; 81001; 84443; 84484; 85025; 87086; 93005; 99283; 99284

== ENCOUNTER 2019-03-07 06:52 | Emergency (ER) | payer MEDICARE ==
[~2019-03-07] VITALS: Ht 160 cm; Wt 41.0 kg
--- NOTE | 2019-03-07 07:09 | NUR ---
Patient states she lives by herself and is having difficult living alone. She is here today because she is having pain in her stomach. Patient was here yesterday for same complaint. Seen yesterday by social media developer.
[2019-03-07] MEDS ORDERED: LORazepam 1MG TABLET ONE (07:25)
[2019-03-07] MEDS ORDERED: LORazepam 1MG TABLET PO ONE (07:30)
--- NOTE | 2019-03-07 08:00 | NUR ---
Pt stated that she does not want to live anymore and states she will go home and drink alcohol until she is . EDMD notified.
--- NOTE | 2019-03-07 08:15 | NUR ---
order for social insurance specialist consult placed. Pt still reports pain 10/10 in her abdomen.
--- NOTE | 2019-03-07 09:57 | NUR ---
pt sleeping on gurney. no acute distress noted at this time.
[2019-03-07 10:52] VITALS: BP 125/102
--- NOTE | 2019-03-07 11:05 | NUR ---
Pt O2 sats drop into the high 80's when she is asleep. O2 via nasal canula applied at 1L.
== END 2019-03-07 12:01 | disposition home or self-care (01) ==
LOC: ED 09:00
DX: F41.1 Generalized anxiety disorder (principal); F32.9 Major depressive disorder, single episode, unspecified; I10 Essential (primary) hypertension; Z96.641 Presence of right artificial hip joint
CPT/HCPCS: 99284

== ENCOUNTER 2019-03-29 08:59 | Outpatient (CLI) | payer MEDICARE ==
[2019-03-29] MEDS ORDERED: CYAN10005 PO (09:39)
[2019-03-29] MEDS ORDERED: ACET-1600 PO (09:39)
[2019-03-29] MEDS ORDERED: FLUT9.9S NS (09:39)
[2019-03-29] MEDS ORDERED: FAMO-79 PO (09:39)
[2019-03-29] MEDS ORDERED: ONDA4TAB13 SL (09:39)
[2019-03-29] MEDS ORDERED: POTA99TA2 PO (09:39)
[2019-03-29] MEDS ORDERED: ACID1TAB7 PO (09:39)
[2019-03-29] MEDS ORDERED: LACT1CAP35 PO (09:39)
[2019-03-29] MEDS ORDERED: ATOR40TA78 PO (09:39)
[2019-03-29] MEDS ORDERED: DICL100G25 TP (09:39)
[2019-03-29] MEDS ORDERED: CLOP75TA PO (09:39)
== END 2019-03-29 23:59 | disposition home or self-care (01) ==
LOC: STAR 08:59
PROVIDERS: ATTEND Surgery
DX: Z02.9 Encounter for administrative examinations, unspecified (principal)

== ENCOUNTER 2019-04-03 06:47 | Day surgery (SDC) | payer MEDICARE ==
[~2019-04-03] VITALS: Ht 160 cm; Wt 41.9 kg
[~2019-04-03 06:47] MED LIST changes: +ACET-1600 PO; +CYAN10005 PO; +DICL100G25 TP; +FAMO-79 PO; +FLUT9.9S NS; +LACT1CAP35 PO; +ONDA4TAB13 SL; +POTA99TA2 PO
[2019-04-03] MEDS ORDERED: EPINEPHRINE 1 MG/ML, 1ML ONE (06:56)
[2019-04-03] MEDS ORDERED: BUPIVACAINE/PF 0.5% ONE (06:56)
[2019-04-03 07:46] VITALS: BP 169/87
[2019-04-03] MEDS ORDERED: FENTANYL PF 100 MCG/2ML ONE ×3 (08:45→10:09)
[2019-04-03] MEDS ORDERED: ISOSULFAN BLUE 10 MG/ML, 5ML IV ONE (08:48)
[2019-04-03] MEDS ORDERED: PROPOFOL 10 MG/ML, 20ML ONE (09:00)
[2019-04-03] MEDS ORDERED: ONDANSETRON 2MG/ML, 2ML ONE (09:00)
[2019-04-03] MEDS ORDERED: DEXAMETHASONE 4 MG/ML, 1ML ONE (09:00)
[2019-04-03] MEDS ORDERED: SUCCINYLCHOLINE 20 MG/ML, 10ML ONE (09:00)
[2019-04-03] MEDS ORDERED: CEFAZOLIN 1,000 MG ONE (09:00)
[2019-04-03] MEDS ORDERED: OXYcodone 5 MG/5 ML ORAL.SOL UDC PO PRN (09:30)
[2019-04-03] MEDS ORDERED: ALBUTEROL SULFATE 2.5 MG/3 ML NPPB PRN (09:30)
[2019-04-03] MEDS ORDERED: MEPERIDINE/PF 25MG/0.5ML IVPush PRN (09:30)
[2019-04-03] MEDS ORDERED: hydrALAzine 20 MG/ML, 1ML IV PRN (09:30)
[2019-04-03] MEDS ORDERED: KETOROLAC 30 MG/1 ML IV PRN (09:30)
[2019-04-03] MEDS ORDERED: METOCLOPRAMIDE 5 MG/ML, 2ML IV PRN (09:30)
[2019-04-03] MEDS ORDERED: ONDANSETRON 2MG/ML, 2ML IVPush PRN (09:30)
[2019-04-03] MEDS ORDERED: LABETALOL 5MG/ML, 20ML IV PRN (09:30)
[2019-04-03] MEDS ORDERED: HYDROmorphone 1 MG/ML, 1ML INJ IV PRN (09:30)
[2019-04-03] MEDS ORDERED: PROMETHAZINE 25 MG/ML, 1ML IV PRN (09:30)
[2019-04-03] MEDS ORDERED: OXYcodone 5 MG/5 ML ORAL.SOL UDC ONE (09:46)
[2019-04-03] MEDS: FENTANYL PF 100 MCG/2ML IV PRN ×3 (09:48→10:10)
== END 2019-04-03 11:25 | disposition home or self-care (01) ==
LOC: OUT 06:47
PROVIDERS: ATTEND Surgery
DX: C50.411 Malignant neoplasm of upper-outer quadrant of right female breast (principal); E78.00 Pure hypercholesterolemia, unspecified; I10 Essential (primary) hypertension; J44.9 Chronic obstructive pulmonary disease, unspecified; Z17.0 Estrogen receptor positive status [ER+]; Z88.0 Allergy status to penicillin; Z88.8 Allergy status to other drugs, medicaments and biological substances
CPT/HCPCS: 19301; 38525; 38792; 76098; 88307; A9541; C9898; J0171; J0330; J0690; J1100; J2405; J2704; J3010; 88341; 88342

== ENCOUNTER 2019-04-14 09:33 | Emergency (ER) | payer MEDICARE ==
[~2019-04-14] VITALS: Ht 160 cm; Wt 42.0 kg
--- NOTE | 2019-04-14 09:51 | NUR ---
SEE TRIAGE NOTE. ERP IN TO SEE PT ON ARRIVAL TO ED. PT ANXIOUS, STATES NO HOME MEDS FOR ANXIETY BUT DRINKS ALCOHOL "A FEW BEERS A DAY". PT DRANK ONE BEER THIS AM BUTTON TUFTER. PT DOES REPORT OF HAVING ARGUMENTS WITH SON BUT STATES NOTHING OUT OF ORDINARY. PT LIVES BY SELF, SON LIVES SEPARATELY IN [place]. PT ALSO REPORTS OF DIFFICULTY SLEEPING D/T HER MIND RACING "I TAKE SLEEP AID BUT IT HASN'T BEEN WORKING". PT PLACED ON BP CUFF, PULSE OX. PT HTN, STATES TOOK BP MED THIS AM AT 0600. WARM BLANKET PROVIDED, CALL LIGHT WITHIN REACH.
[2019-04-14 10:26] VITALS: BP 210/116
--- NOTE | 2019-04-14 10:53 | NUR ---
Pt insistent on leaving, states "I told [facility] just to leave me there." Pt educated on other routes of assistance should she need it in the future, and important of PCP follow-up and management. ERP aware. Pt states "Well, I can't get a ride. You've got to get me home." This nurse called a friend for her, friend states she will be here to pick pt up in thirty minutes. Pt d/c to lobby without issue.
== END 2019-04-14 10:57 | disposition home or self-care (01) ==
LOC: ED 10:55
DX: F41.1 Generalized anxiety disorder (principal); R06.00 Dyspnea, unspecified; I10 Essential (primary) hypertension; N95.1 Menopausal and female climacteric states; F17.200 Nicotine dependence, unspecified, uncomplicated; Z88.0 Allergy status to penicillin; Z96.649 Presence of unspecified artificial hip joint
CPT/HCPCS: 71045; 93005; 99284

== ENCOUNTER 2019-05-06 11:16 | Emergency (ER) | payer MEDICARE ==
[~2019-05-06] VITALS: Ht 160 cm; Wt 42.5 kg
--- NOTE | 2019-05-06 11:25 | NUR ---
PATIENT BIB [facility] FOR ANXIETY, PATIENT ANXIOUS BUT COOPERATIVE AT THIS TIME. RECENT HX OF BREAST CA WITH MASTECTOMY (RT BREAST) 04/03/19. PATIENT ALSO REPORTS SPOUSE A LITTLE OVER A YEAR AGO. AWAITING MD ORDERS, CALL LIGHT WITHIN REACH
--- NOTE | 2019-05-06 11:32 | NUR ---
PATIENT C/O HEAD PAIN, ABD PAIN, AND LOWER EXT PAIN, DENIES PAINFUL URINATION AT THIS TIME. NO ADDITIONAL NEEDS AT THIS TIME.
--- NOTE | 2019-05-06 11:35 | NUR ---
PATIENT ALSO REPORTING RECENT ADMIT [facility] 04/19-04/25, PRESCRIBED RISPERDAL, NON-COMPLIANT WITH MEDICATION DUE TO THE WAY IT MAKES PATIENT FEEL PER PATIENT.
[2019-05-06] MEDS ORDERED: TRAZ-137 PO (12:10)
[2019-05-06] MEDS ORDERED: RISP0.5T24 PO (12:10)
[2019-05-06] MEDS ORDERED: ALPR-475 PO (12:11)
--- NOTE | 2019-05-06 12:57 | NUR ---
PATIENT SPEAKING WITH MD AT BEDSIDE.
--- NOTE | 2019-05-06 13:01 | NUR ---
NEW ORDERS, AWAITING CT.
--- NOTE | 2019-05-06 14:05 | NUR ---
RESULTS BACK, CHART UP FOR RECHECK. PATIENT SITTING IN [place], A+OX4. AWAITING FURTHER ORDERS. VS UPDATED IN CHART.
[2019-05-06 14:08] VITALS: BP 152/85
--- NOTE | 2019-05-06 14:44 | NUR ---
Patient/Caregiver given discharge instructions and they have confirmed that they understand the instructions. Patient ambulatory with steady gait with walker. Patient states she will call a taxi to drive her home.
== END 2019-05-06 14:45 | disposition home or self-care (01) ==
LOC: ED 12:34
DX: G44.52 New daily persistent headache (NDPH) (principal); F17.200 Nicotine dependence, unspecified, uncomplicated; I10 Essential (primary) hypertension; Z85.3 Personal history of malignant neoplasm of breast
CPT/HCPCS: 70450; 99284

== ENCOUNTER 2019-05-30 06:49 | Inpatient (IN) | payer MEDICARE ==
[~2019-05-30] VITALS: Ht 160 cm; Wt 39.5 kg
[~2019-05-30 06:49] MED LIST changes: -ALPR-475 PO; +ALPR0.5T7 PO; +CYAN-27 PO; -CYAN10005 PO; -HYDR-3307 PO; +HYDR-36 PO; +RISP0.5T24 PO
--- NOTE | 2019-05-30 06:57 | NUR ---
PT BIB EMS FOR ANXIETY. PT STATES SHE HAS HAD ANXIETY FOR THE PAST FEW MONTHS AND IT HAS GOTTEN WORSE THE PAST FEW DAYS AND REALLY UPSET. PT STATES "EVERYTHING HURTS AND I JUST CANT LIVE LIKE THIS." MD AT BEDSIDE. PT RESTING COMFORTABLE IN [facility].
[2019-05-30] MEDS ORDERED: LORazepam 1MG TABLET PO ONE (07:00)
[2019-05-30] MEDS ORDERED: LORazepam 1MG TABLET ONE (07:02)
[2019-05-30 07:23] LABS: BASOPHILS # (AUTO) 0.04 x10^3/uL (0-0.1); BASOPHILS % (AUTO) 1 % (0-1); EOSINOPHILS # (AUTO) 0.13 x10^3/uL (0-0.4); EOSINOPHILS % (AUTO) 2 % (1-7); LYMPHOCYTES # (AUTO) 3.72 x10^3/uL (1-3.4); LYMPHOCYTES % (AUTO) 43 % (22-44); MD NO; MEAN CORPUSCULAR HEMOGLOBIN 33.4 pg (27.0-34.8); MEAN CORPUSCULAR HGB CONC 32.6 g/dL (32.4-35.8); MEAN CORPUSCULAR VOLUME 102.4 fL (80-100); MEAN PLATELET VOLUME 7.3 fL (7.4-10.4); MONOCYTES # (AUTO) 0.74 x10^3/uL (0.2-0.8); MONOCYTES % (AUTO) 9 % (2-9); NEUTROPHILS # (AUTO) 4.04 x10^3/uL (1.8-6.8); NEUTROPHILS % (AUTO) 47 % (42-75); PLATELET COUNT 298 x10^3/uL (130-400); RED BLOOD COUNT 4.58 x10^6/uL (3.82-5.3); RED CELL DISTRIBUTION WIDTH 16.8 % (9.6-15.2)
[2019-05-30 07:32] LABS: ALBUMIN 3.8 g/dL (3.4-5.0); ANION GAP 6 mmol/L (5-15); CALCIUM 9.1 mg/dL (8.5-10.1); CHLORIDE 106 mmol/L (98-107); SALICYLATE LEVEL 1.8 mg/dL (2.8-20.0)
[2019-05-30 07:35] LABS: ALANINE AMINOTRANSFERASE 28 U/L (12-78); ALKALINE PHOSPHATASE 90 U/L (45-117); BILIRUBIN,TOTAL 0.9 mg/dL (0.2-1.0); CREATININE 0.51 mg/dL (0.55-1.02); TOTAL PROTEIN 7.4 g/dL (6.4-8.2)
--- NOTE | 2019-05-30 07:48 | NUR ---
PT STATES "I AM STILL ANXIOUS AFTER THE PILL"/ VS STABLE. PT DOES NOT APPEART TO BE IN DISTRESS.
[2019-05-30 08:37] LABS: CULTURE INDICATED? YES; MICROSCOPIC INDICATED
[2019-05-30 08:50] LABS: AMPHETAMINE SCREEN, URINE Negative (Negative); BARBITURATE SCREEN, URINE Negative (Negative); BENZODIAZEPINE SCREEN, URINE Negative (Negative); CANNABINOID SCREEN, URINE Negative (Negative); COCAINE SCREEN, URINE Negative (Negative); METHADONE SCREEN, URINE Negative (Negative); OPIATE SCREEN, URINE Negative (Negative)
--- NOTE | 2019-05-30 08:52 | NUR ---
PT STATES " I AM TRYING TO BE CALM, I KNOW SOMETHING IS WRONG W ME" RN REASSURED FOR PT TO STAY CALM, PT APPEARS RELAXED IN GURNEY
[2019-05-30] MEDS ORDERED: CEFTRIAXONE PMX 1GM/50ML 50 ML IV ONE (10:00)
[2019-05-30] MEDS ORDERED: CEFTRIAXONE PMX 1GM/50ML 50 ML ONE (10:06)
--- NOTE | 2019-05-30 11:50 | NUR ---
REPORT GIVEN TO SADIE
[2019-05-30 12:46] VITALS: BP 164/88
[2019-05-30] MEDS ORDERED: NICOTINE 7 MG/24 HR PATCH.TD24 TD SCH (14:00)
[2019-05-30] MEDS ORDERED: ACETAMINOPHEN 325 MG TABLET PO PRN (14:00)
[2019-05-30] MEDS ORDERED: ONDANSETRON ODT 4 MG PO PRN (14:00)
[2019-05-30] MEDS ORDERED: ENOXAPARIN 40 MG/0.4 ML SQ SCH (14:00)
[2019-05-30] MEDS ORDERED: ONDANSETRON 2MG/ML, 2ML IVPush PRN (14:00)
[2019-05-30] MEDS ORDERED: DICLOFENAC SODIUM TP PRN (15:00)
[2019-05-30] MEDS ORDERED: TRAM50TA2 PO (16:06)
[2019-05-30] MEDS: LORazepam 0.5MG TABLET PO PRN (16:28)
[2019-05-30 20:11] VITALS: BP 154/88
[2019-05-30] MEDS ORDERED: QUETIAPINE 25MG TABLET PO SCH (21:00)
[2019-05-30] MEDS ORDERED: ATORVASTATIN 40 MG TABLET PO SCH (21:00)
[2019-05-30] MEDS: BUSPIRONE 5 MG TABLET PO SCH (21:15)
[2019-05-30] MEDS: METOPROLOL TARTRATE 50 MG TABLET PO SCH (21:15)
[2019-05-30] MEDS ORDERED: CLOPIDOGREL 75 MG TABLET ONE (21:20)
[2019-05-30] MEDS ORDERED: CLOPIDOGREL 75 MG TABLET PO SCH (21:30)
[2019-05-31 01:41] VITALS: BP 147/82
[2019-05-31 05:21] LABS: BASOPHILS # (AUTO) 0.06 x10^3/uL (0-0.1); BASOPHILS % (AUTO) 1 % (0-1); EOSINOPHILS # (AUTO) 0.24 x10^3/uL (0-0.4); EOSINOPHILS % (AUTO) 3 % (1-7); LYMPHOCYTES # (AUTO) 4.67 x10^3/uL (1-3.4); LYMPHOCYTES % (AUTO) 51 % (22-44); MD NO; MEAN CORPUSCULAR HEMOGLOBIN 33.6 pg (27.0-34.8); MEAN CORPUSCULAR HGB CONC 32.5 g/dL (32.4-35.8); MEAN CORPUSCULAR VOLUME 103.5 fL (80-100); MEAN PLATELET VOLUME 7.4 fL (7.4-10.4); MONOCYTES # (AUTO) 0.77 x10^3/uL (0.2-0.8); MONOCYTES % (AUTO) 8 % (2-9); NEUTROPHILS # (AUTO) 3.47 x10^3/uL (1.8-6.8); NEUTROPHILS % (AUTO) 38 % (42-75); PLATELET COUNT 334 x10^3/uL (130-400); RED BLOOD COUNT 4.18 x10^6/uL (3.82-5.3); RED CELL DISTRIBUTION WIDTH 16.7 % (9.6-15.2)
[2019-05-31 05:35] LABS: CHLORIDE 104 mmol/L (98-107)
[2019-05-31 05:44] LABS: ALANINE AMINOTRANSFERASE 25 U/L (12-78); ALBUMIN 3.4 g/dL (3.4-5.0); ALKALINE PHOSPHATASE 81 U/L (45-117); ANION GAP 6 mmol/L (5-15); BILIRUBIN,TOTAL 0.7 mg/dL (0.2-1.0); CALCIUM 8.8 mg/dL (8.5-10.1); CREATININE 0.51 mg/dL (0.55-1.02); TOTAL PROTEIN 6.8 g/dL (6.4-8.2)
[2019-05-31 06:49] VITALS: BP 147/76
[2019-05-31] MEDS: LORazepam 0.5MG TABLET PO PRN (07:45)
[2019-05-31] MEDS ORDERED: FLUTICASONE NASAL SPRAY 16GM NAS SCH (09:00)
[2019-05-31] MEDS ORDERED: CYANOCOBALAMIN 1,000 MCG TABLET PO SCH (09:00)
[2019-05-31] MEDS ORDERED: CLOPIDOGREL 75 MG TABLET PO SCH (09:00)
[2019-05-31] MEDS ORDERED: FAMOTIDINE 20 MG TABLET PO SCH (09:00)
[2019-05-31] MEDS: BUSPIRONE 5 MG TABLET PO SCH (09:53)
[2019-05-31] MEDS: METOPROLOL TARTRATE 50 MG TABLET PO SCH (09:53)
[2019-05-31] MEDS ORDERED: CEFTRIAXONE PMX 1GM/50ML 50 ML IV SCH (10:00)
[2019-05-31] MEDS ORDERED: QUET25TA7 PO (10:39)
[2019-05-31] MEDS ORDERED: CEFD300C37 PO (10:39)
[2019-05-31] MEDS ORDERED: BUSP5TAB2 PO (10:39)
[2019-08-01] MEDS ORDERED: SERT50TA PO (13:26)
[2019-08-01] MEDS ORDERED: METO-95 PO (13:26)
[2019-08-01] MEDS ORDERED: QUET25TA7 PO (13:55)
== END 2019-05-31 12:45 | disposition home or self-care (01) | DRG 690 ==
LOC: ED 07:07 → EDIP 11:11 → 3NE 11:43 → DCLOUNGE 05-31 12:35
PROVIDERS: ADMIT Internal Medicine; ATTEND Internal Medicine
DX: N30.90 Cystitis, unspecified without hematuria (principal); F06.4 Anxiety disorder due to known physiological condition; F41.1 Generalized anxiety disorder; I73.9 Peripheral vascular disease, unspecified; E78.5 Hyperlipidemia, unspecified; I10 Essential (primary) hypertension; C50.919 Malignant neoplasm of unspecified site of unspecified female breast; F17.210 Nicotine dependence, cigarettes, uncomplicated; J45.909 Unspecified asthma, uncomplicated; Z96.643 Presence of artificial hip joint, bilateral; F10.20 Alcohol dependence, uncomplicated; F32.9 Major depressive disorder, single episode, unspecified; G89.29 Other chronic pain; R56.9 Unspecified convulsions; Z82.49 Family history of ischemic heart disease and other diseases of the circulatory system; Z82.3 Family history of stroke; Z79.899 Other long term (current) drug therapy; Z83.3 Family history of diabetes mellitus; Z90.710 Acquired absence of both cervix and uterus
CPT/HCPCS: 36415; 80053; 80307; 81001; 83735; 84100; 84443; 85025; 87077; 87086; 87186; 93005; 96365; G0378; J0696

== ENCOUNTER 2020-02-15 12:17 | Inpatient (IN) | payer MEDICARE ==
[~2020-02-15] VITALS: Ht 157.5 cm; Wt 36.8 kg
[~2020-02-15 12:17] MED LIST changes: +BUSP5TAB2 PO; +OMEP40CA42 PO; -OMEP40CA6 PO; +QUET25TA7 PO; +SERT50TA PO; -TRAZ-137 PO; +TRAZ-175 PO
--- NOTE | 2020-02-15 12:46 | NUR ---
BIB [facility] FROM HOME WITH C/O FALL AND UPPER TORSO PAIN. HEATHER VERY POOR HISTORIAN. APPEARS PT FELL WHEN TRANSFERING INTO BED. W/C BOUND DUE TO CHRONIC PAIN. MAY HAVE HIT HEAD BUT DENIES LOC. PT SUFFERS FROM CHRONIC PAIN. UNSURE IF PAIN IS WORSE THAN NORMAL. DID TAKE 2 OXYCODONE PRIOR TO ARRIVAL. PT WAS HYPOXIC FOR [facility]. PER [facility] SUPPOSED TO BE ON O2 BUT REFUSES. PT VSS AT THIS TIME. 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 PULSE OX, AND BP. WILL CONTINUE TO MONITOR. Addendum: 02/15/20 at 1251 by GRABIEL PATIENT WAS ALSO HYPOTENSIVE FOR [facility] WITH BP IN THE 80'S/50'S. SPO2 WAS FIRST 80 RA FOR [facility].
[2020-02-15 13:17] LABS: MEAN CORPUSCULAR HEMOGLOBIN 30.8 pg (27.0-34.8); MEAN CORPUSCULAR HGB CONC 32.8 g/dL (32.4-35.8); MEAN CORPUSCULAR VOLUME 93.8 fL (80-100); MEAN PLATELET VOLUME 8.1 fL (7.4-10.4); PLATELET COUNT 471 x10^3/uL (130-400); RED BLOOD COUNT 3.48 x10^6/uL (3.82-5.3); RED CELL DISTRIBUTION WIDTH 17.4 % (9.6-15.2)
[2020-02-15 13:26] LABS: ALBUMIN 2.2 g/dL (3.4-5.0); CALCIUM 8.6 mg/dL (8.5-10.1); CREATININE 0.82 mg/dL (0.55-1.02)
[2020-02-15 13:30] LABS: TROPONIN I 0.024 ng/mL (0.000-0.045)
--- NOTE | 2020-02-15 13:34 | NUR ---
PT BACK FROM CT VIA [facility].
[2020-02-15 13:37] LABS: CHLORIDE 106 mmol/L (98-107)
[2020-02-15 13:38] LABS: ANION GAP 2 mmol/L (5-15)
[2020-02-15 13:44] LABS: BASOPHILS # (AUTO) 0.02 x10^3/uL (0-0.1); BASOPHILS % (AUTO) 0 % (0-1); EOSINOPHILS # (AUTO) 0.13 x10^3/uL (0-0.4); EOSINOPHILS % (AUTO) 1 % (1-7); LYMPHOCYTES # (AUTO) 1.24 x10^3/uL (1-3.4); LYMPHOCYTES % (AUTO) 12 % (22-44); MD SCAN; MONOCYTES # (AUTO) 1.61 x10^3/uL (0.2-0.8); MONOCYTES % (AUTO) 15 % (2-9); NEUTROPHILS # (AUTO) 7.54 x10^3/uL (1.8-6.8); NEUTROPHILS % (AUTO) 72 % (42-75)
[2020-02-15] MEDS ORDERED: MORPHINE SULFATE 4 MG/ML, 1ML ONE (14:13)
[2020-02-15] MEDS ORDERED: ONDANSETRON 2MG/ML, 2ML ONE (14:13)
--- NOTE | 2020-02-15 14:22 | NUR ---
PATIENT MEDICATED PER DEC. 5 RIGHTS VERIFIED PRIOR. 3 P'S ADDRESSED.
[2020-02-15] MEDS ORDERED: ONDANSETRON 2MG/ML, 2ML IVPush ONE (14:30)
[2020-02-15] MEDS ORDERED: morphine SULFATE 10 MG/ML, 1ML IVPush ONE (14:30)
[2020-02-15] MEDS ORDERED: ONDANSETRON 2MG/ML, 2ML IVPush PRN (15:00)
[2020-02-15] MEDS ORDERED: ONDANSETRON ODT 4 MG PO PRN (15:00)
[2020-02-15] MEDS ORDERED: KETOROLAC 30 MG/1 ML IV PRN (15:00)
--- NOTE | 2020-02-15 15:26 | NUR ---
FULL ASSIST TO BSC. UA OBTAINED.
[2020-02-15 15:30] LABS: MICROSCOPIC INDICATED
--- NOTE | 2020-02-15 15:54 | NUR ---
REPORT TO SETH CRAVEN.
[2020-02-15] MEDS: SODIUM CHLORIDE 0.9% 1,000 ML IV SCH (16:54)
[2020-02-15] MEDS: HEPARIN 5,000 UNITS/ML, 1ML SQ SCH (16:55)
[2020-02-15] MEDS: ACETAMINOPHEN 500 MG TABLET PO SCH ×2 (16:55→20:04)
[2020-02-15] MEDS: NICOTINE 7 MG/24 HR PATCH.TD24 TD SCH (16:56)
[2020-02-15 17:08] VITALS: BP 108/62
[2020-02-15 18:13] VITALS: BP 108/62
[2020-02-15 19:08] VITALS: BP 101/59
[2020-02-15] MEDS: CALCIUM/VITAMIN D3 250-125 TABLET PO SCH (20:02)
[2020-02-15] MEDS: ATORVASTATIN 40 MG TABLET PO SCH (20:02)
[2020-02-15] MEDS: LACTOBACILLUS CHEW TABLET PO SCH (20:03)
[2020-02-16 02:24] VITALS: BP 94/58
[2020-02-16] MEDS: HEPARIN 5,000 UNITS/ML, 1ML SQ SCH ×2 (03:00→15:54)
[2020-02-16] MEDS: ACETAMINOPHEN 325 MG TABLET PO SCH ×4 (04:00→21:28)
[2020-02-16 05:20] LABS: ANION GAP 5 mmol/L (5-15); CALCIUM 8.3 mg/dL (8.5-10.1); CHLORIDE 105 mmol/L (98-107)
[2020-02-16 05:21] LABS: CREATININE 0.57 mg/dL (0.55-1.02)
[2020-02-16] MEDS: ALENDRONATE 10 MG TABLET PO SCH (06:16)
[2020-02-16 06:18] LABS: AMPHETAMINE SCREEN, URINE Negative (Negative); BARBITURATE SCREEN, URINE Negative (Negative); BENZODIAZEPINE SCREEN, URINE Positive (Negative); CANNABINOID SCREEN, URINE Negative (Negative); COCAINE SCREEN, URINE Negative (Negative); METHADONE SCREEN, URINE Negative (Negative); OPIATE SCREEN, URINE Positive (Negative)
[2020-02-16 06:20] LABS: BASOPHILS # (AUTO) 0.04 x10^3/uL (0-0.1); BASOPHILS % (AUTO) 0 % (0-1); EOSINOPHILS # (AUTO) 0.38 x10^3/uL (0-0.4); EOSINOPHILS % (AUTO) 3 % (1-7); LYMPHOCYTES # (AUTO) 1.78 x10^3/uL (1-3.4); LYMPHOCYTES % (AUTO) 15 % (22-44); MD NO; MEAN CORPUSCULAR HEMOGLOBIN 30.6 pg (27.0-34.8); MEAN CORPUSCULAR HGB CONC 32.4 g/dL (32.4-35.8); MEAN CORPUSCULAR VOLUME 94.5 fL (80-100); MEAN PLATELET VOLUME 7.9 fL (7.4-10.4); MONOCYTES # (AUTO) 1.42 x10^3/uL (0.2-0.8); MONOCYTES % (AUTO) 12 % (2-9); NEUTROPHILS # (AUTO) 7.98 x10^3/uL (1.8-6.8); NEUTROPHILS % (AUTO) 69 % (42-75); PLATELET COUNT 453 x10^3/uL (130-400); RED CELL DISTRIBUTION WIDTH 17.6 % (9.6-15.2)
[2020-02-16 08:40] VITALS: BP 97/67
[2020-02-16] MEDS: CALCIUM/VITAMIN D3 250-125 TABLET PO SCH ×2 (08:53→20:51)
[2020-02-16] MEDS: QUETIAPINE 25MG TABLET PO SCH (08:53)
[2020-02-16] MEDS: SERTRALINE 50MG TABLET PO SCH (08:53)
[2020-02-16] MEDS: LACTOBACILLUS CHEW TABLET PO SCH ×2 (08:54→20:51)
[2020-02-16] MEDS: CLOPIDOGREL 75 MG TABLET PO SCH (08:54)
[2020-02-16] MEDS ORDERED: METOPROLOL SUCCINATE 100 MG TAB.ER.24H PO SCH ×2 (09:00)
[2020-02-16] MEDS: FLUTICASONE NASAL SPRAY 16GM NAS SCH (09:00)
[2020-02-16 12:16] VITALS: BP 93/58
[2020-02-16] MEDS: CEFTRIAXONE PMX 1GM/50ML 50 ML IV SCH (14:02)
[2020-02-16 14:14] VITALS: BP 80/50
[2020-02-16] MEDS: NICOTINE 7 MG/24 HR PATCH.TD24 TD SCH (15:00)
[2020-02-16 15:51] VITALS: BP 99/66
[2020-02-16] MEDS: OXYcodone 5 MG/5 ML ORAL.SOL UDC PO PRN ×2 (15:54→21:32)
[2020-02-16 18:23] VITALS: BP 101/60
[2020-02-16] MEDS: ATORVASTATIN 40 MG TABLET PO SCH (20:50)
[2020-02-16] MEDS: SODIUM CHLORIDE 0.9% 1,000 ML IV SCH (20:51)
[2020-02-17 00:12] VITALS: BP 108/59
[2020-02-17] MEDS: OXYcodone 5 MG/5 ML ORAL.SOL UDC PO PRN ×3 (03:33→14:29)
[2020-02-17] MEDS: HEPARIN 5,000 UNITS/ML, 1ML SQ SCH ×2 (03:33→15:00)
[2020-02-17] MEDS: ACETAMINOPHEN 325 MG TABLET PO SCH ×2 (03:37→10:00)
[2020-02-17 05:41] LABS: BASOPHILS # (AUTO) 0.03 x10^3/uL (0-0.1); BASOPHILS % (AUTO) 0 % (0-1); EOSINOPHILS # (AUTO) 0.16 x10^3/uL (0-0.4); EOSINOPHILS % (AUTO) 2 % (1-7); LYMPHOCYTES # (AUTO) 1.58 x10^3/uL (1-3.4); LYMPHOCYTES % (AUTO) 17 % (22-44); MD NO; MEAN CORPUSCULAR HEMOGLOBIN 30.9 pg (27.0-34.8); MEAN CORPUSCULAR HGB CONC 33.1 g/dL (32.4-35.8); MEAN CORPUSCULAR VOLUME 93.3 fL (80-100); MEAN PLATELET VOLUME 8.4 fL (7.4-10.4); MONOCYTES # (AUTO) 1.26 x10^3/uL (0.2-0.8); MONOCYTES % (AUTO) 14 % (2-9); NEUTROPHILS # (AUTO) 6.03 x10^3/uL (1.8-6.8); NEUTROPHILS % (AUTO) 67 % (42-75); PLATELET COUNT 476 x10^3/uL (130-400); RED BLOOD COUNT 3.21 x10^6/uL (3.82-5.3); RED CELL DISTRIBUTION WIDTH 16.9 % (9.6-15.2)
[2020-02-17 05:46] LABS: ANION GAP 5 mmol/L (5-15); CALCIUM 8.3 mg/dL (8.5-10.1); CHLORIDE 106 mmol/L (98-107); CREATININE 0.32 mg/dL (0.55-1.02)
[2020-02-17] MEDS: ALENDRONATE 10 MG TABLET PO SCH (06:16)
[2020-02-17 08:06] VITALS: BP 147/82
[2020-02-17] MEDS: FLUTICASONE NASAL SPRAY 16GM NAS SCH (08:53)
[2020-02-17 08:55] VITALS: BP 124/82
[2020-02-17] MEDS: CALCIUM/VITAMIN D3 250-125 TABLET PO SCH ×2 (09:00→09:09)
[2020-02-17] MEDS ORDERED: METOPROLOL SUCCINATE 25 MG TAB.ER.24H PO SCH (09:00)
[2020-02-17] MEDS: LACTOBACILLUS CHEW TABLET PO SCH (09:09)
[2020-02-17] MEDS: SERTRALINE 50MG TABLET PO SCH (09:10)
[2020-02-17] MEDS: CLOPIDOGREL 75 MG TABLET PO SCH (09:10)
[2020-02-17] MEDS: QUETIAPINE 25MG TABLET PO SCH (09:10)
[2020-02-17 09:12] LABS: ALBUMIN 1.9 g/dL (3.4-5.0); BILIRUBIN, DIRECT 0.2 mg/dL (0.1-0.2)
[2020-02-17 09:37] LABS: BILIRUBIN,INDIRECT 0.3 mg/dL (0.0-2.0); BILIRUBIN,TOTAL 0.5 mg/dL (0.2-1.0); TOTAL PROTEIN 5.7 g/dL (6.4-8.2)
[2020-02-17] MEDS ORDERED: OXYC5SOL8 PO (11:58)
[2020-02-17] MEDS ORDERED: CALC1TAB68 PO (11:58)
[2020-02-17] MEDS ORDERED: METO25TA91 PO (11:58)
[2020-02-17] MEDS ORDERED: ALPR0.254 PO (11:58)
[2020-02-17] MEDS ORDERED: ALEN10TA10 PO (11:58)
[2020-02-17] MEDS ORDERED: NICO-485 TD (11:58)
[2020-02-17 12:08] VITALS: BP 94/63
[2020-02-17] MEDS: CEFTRIAXONE PMX 1GM/50ML 50 ML IV SCH (14:29)
[2020-02-17] MEDS: NICOTINE 7 MG/24 HR PATCH.TD24 TD SCH (15:00)
[2020-03-01] MEDS ORDERED: METO-264 PO (16:09)
[2020-03-03] MEDS ORDERED: METO-99 PO (16:38)
[2020-03-03] MEDS ORDERED: ALPR0.5T6 PO (16:41)
== END 2020-02-17 16:01 | DRG 564 ==
LOC: ED 12:29 → EDIP 14:21 → 3N 16:22
PROVIDERS: ADMIT Internal Medicine; ATTEND Hospitalist
DX: S22.20XA Unspecified fracture of sternum, initial encounter for closed fracture (principal); J96.01 Acute respiratory failure with hypoxia; S22.43XA Multiple fractures of ribs, bilateral, initial encounter for closed fracture; N39.0 Urinary tract infection, site not specified; J98.11 Atelectasis; G89.4 Chronic pain syndrome; D64.9 Anemia, unspecified; D72.829 Elevated white blood cell count, unspecified; E78.5 Hyperlipidemia, unspecified; F10.10 Alcohol abuse, uncomplicated; F17.210 Nicotine dependence, cigarettes, uncomplicated; F41.9 Anxiety disorder, unspecified; I10 Essential (primary) hypertension; I73.9 Peripheral vascular disease, unspecified; J44.9 Chronic obstructive pulmonary disease, unspecified; M81.0 Age-related osteoporosis without current pathological fracture; R62.7 Adult failure to thrive; Z80.1 Family history of malignant neoplasm of trachea, bronchus and lung; Z85.3 Personal history of malignant neoplasm of breast; Z91.19 Patient's noncompliance with other medical treatment and regimen; Z99.3 Dependence on wheelchair; W01.0XXA Fall on same level from slipping, tripping and stumbling without subsequent striking against object, initial encounter; Y93.89 Activity, other specified; Y92.89 Other specified places as the place of occurrence of the external cause; Y99.8 Other external cause status; I95.9 Hypotension, unspecified
CPT/HCPCS: 36415; 71045; 71250; 72125; 80048; 80076; 80307; 81001; 82040; 82607; 82728; 83540; 83550; 83880; 84443; 84484; 85025; 87077; 87086; 87186; 93005; 96374; 99285; G0378; J0696; J1644; J2405; J2270; J7030